=== PATIENT | female | born 1935 | race Caucasian/White ===

== ENCOUNTER 2018-02-18 13:48 | Emergency (ER) | payer OTHER, SELFPAY ==
[2018-02-18 13:58] VITALS: BP 192/90; PULSE 77; RESP 16; TEMP 36.7; O2SAT 96
--- NOTE | 2018-02-18 14:31 | DI.US_ITS ---
SYMPTOMS/DIAGNOSIS: LEFT CALF AND KNEE PAIN, CONCERN FOR DVT LEFT LOWER EXTREMITY ULTRASOUND: The deep veins of the left lower extremity show normal compression, augmentation and color flow. No evidence of a deep venous thrombus is present. The visualized portions of the common femoral vein are patent with normal blood flow. Incidental note is made of a 3.3 x 0.4 x 2.8 cm fluid collection along the posteromedial knee, likely reflecting a popliteal cyst. IMPRESSION: 1. No evidence of a left lower extremity deep venous thrombus. 2. Popliteal cyst.
--- NOTE | 2018-02-18 15:50 | DI.RAD_ITS ---
SYMPTOMS/DIAGNOSIS: LEFT KNEE PAIN LEFT KNEE: Three views. No acute fracture or dislocation is seen. Chondrocalcinosis is present. There is an enthesophyte at the superior aspect of the patella. The soft tissues are otherwise unremarkable. IMPRESSION: No acute abnormality.
[2018-02-18 17:20] VITALS: BP 192/90; PULSE 77; RESP 16; TEMP 36.7; O2SAT 96
--- NOTE | 2018-02-19 13:32 | W.ED.GENAD ---
Discharge Plan Disposition Patient Disposition: HOME Condition: Good Discharge Details Chief Complaint: Orthopedic Clinical Impression: Robertson cyst Primary Care Provider: Bryanna Kumar ED Provider: Brad Darden Home Meds and New Rx's Prescriptions: No Action lubiprostone [Amitiza] 8 mcg capsule 8 mcg PO BID Qty: 60 RF: 0 multivitamin [Daily Vitamin] 1 EACH tablet 1 ea PO DAILY RF: 0 aspirin 325 MG tablet 650 mg PO DAILY PRNRF: 0 acetaminophen [Tylenol Extra Strength] 500 MG tablet 1,000 mg PO PRN RF: 0 calcium carbonate [Tums Ultra] 400 MG tablet,chewable 400 mg PO PRN RF: 0 diphenhydramine-acetaminophen [Tylenol PM Extra Strength] 1 EACH tablet 1 ea PO PRN RF: 0 cholecalciferol (vitamin D3) 2,000 UNIT tablet 2,000 unit PO DAILY RF: 0 naproxen sodium 550 MG tablet 550 mg PO BID PRNQty: 60 RF: 1 psyllium husk (aspartame) [Metamucil Fiber Singles] 3.4 GM powder in packet 3.4 gm PO DAILY RF: 0 aspirin-sod bicarb-citric acid [Molly-[place] Extra Strength] 1 EACH tablet, effervescent 1 ea PO PRN RF: 0 estradiol [Estrace] 42.5 GM cream 0.25 sarah VG tiw PRNQty: 1 RF: 0 miconazole nitrate [Miconazole 7] 100 MG suppository 100 mg VG BID RF: 0 castor oil 1 cap PO DAILY RF: 0 polyethylene glycol 3350 [GlycoLax] 527 GM powder 17 gm PO BID PRNRF: 0 amitriptyline 25 mg tablet 25 mg PO BID PRN (Reason: Insomnia, fibromyalgia) Qty: 180 RF: 3 Discharge Instructions Instructions: Bakers Cyst (ED) Additional Instructions: Please take 1000 mg of Tylenol maximum, 800 mg of ibuprofen maximum, and use ice, and your pressure stocking on your leg. If you notice any worsening of your symptoms, or any new symptoms such as vomiting, diarrhea, fever, chills, shortness of breath, chest pain, numbness, weakness, or fainting , please return immediately to the emergency department for reevaluation. Please follow up with your primary care provider as soon as possible for reassessment and reevaluation. As always, it was a pleasure participating in your medical care today. Referrals: Bryanna Kumar MD [Primary Care Provider] - Discharge Data Discharge Date/Time-TO BE ENTERED AT DEPARTURE: 02/18/18 17:20 Medical Decision Making This is an 83-year-old female who presents today for evaluation of left lower extremity posterior knee pain. Patient states that for the last 3-4 days she has had mild pain in the posterior aspect of her knee. It is worsened with extension ambulation. It is improved with ibuprofen and compression devices. She denies any injury, fall, or trauma. She denies any associated numbness tingling or weakness. She denies any previous surgery on the knee. Physical exam demonstrates no significant joint laxity in the knee, no crepitus on movement. Neurovascularly intact. Mild tenderness on palpation to the posterior aspect. Differential included Robertson's cyst versus DVT. She has no history of blood clots or other red flags however based on physical exam this was of concern. Ultrasound demonstrated evidence of a large Robertson's cyst behind the knee, no osseous abnormalities on x-ray. At this time we did get the patient up and ambulate around. She did well, and showed no signs of pain or difficulty with ambulation. With a negative workup I feel the patient can be safely discharged home with close follow-up. We have encouraged continued ibuprofen, Tylenol, ice, elevation, and compression. We discussed the importance of close follow-up as well as red flags which to return the patient understands. I have extensively reviewed the treatment plan and discharge instructions with the patient. I have addressed all patient concerns at this time. The patient was made aware of what symptoms to monitor for that would warrant a return to the emergency department. Discussed the plan with the patient, they demonstrate verbal understanding and agreement with our assessment and plan at this time. The deep veins of the left lower extremity show normal compression, augmentation and color flow. No evidence of a deep venous thrombus is present. The visualized portions of the common femoral vein are patent with normal blood flow. Incidental note is made of a 3.3 x 0.4 x 2.8 cm fluid collection along the posteromedial knee, likely reflecting a popliteal cyst. IMPRESSION: 1. No evidence of a left lower extremity deep venous thrombus. 2. Popliteal cyst. LEFT KNEE: Three views. No acute fracture or dislocation is seen. Chondrocalcinosis is present. There is an enthesophyte at the superior aspect of the patella. The soft tissues are otherwise unremarkable. IMPRESSION: No acute abnormality. HPI General Date/Time Provider Initiated Documentation: 02/18/18 14:31. HPI Narrative: This is an 83-year-old female who presents today for evaluation of left lower extremity posterior knee pain. Patient states that for the last 3-4 days she has had mild pain in the posterior aspect of her knee. It is worsened with extension ambulation. It is improved with ibuprofen and compression devices. She denies any injury, fall, or trauma. She denies any associated numbness tingling or weakness. Patient denies any other associated symptoms at this time. The patient is able to walk without assistance, but it does cause her some mild discomfort. Past medical history is positive for hypertension, cardiac disease, high cholesterol. She denies any recent surgeries. Previous surgical history is positive for hysterectomy. She denies any IV or illicit drug use. She has no other complaints at this time. Related Data Home Medications Medication Instructions Recorded Confirmed acetaminophen [Tylenol Extra 1,000 mg PO PRN tab-cap 10/10/12 02/18/18 Strength] aspirin 650 mg PO DAILY PRN tab-cap 10/10/12 02/18/18 calcium carbonate [Tums Ultra] 400 mg PO PRN tab.chew 10/10/12 02/18/18 diphenhydramine-acetaminophen 1 ea PO PRN 10/10/12 02/18/18 [Tylenol Pm Ex-Strength Caplet] multivitamin [Daily Vitamin] 1 ea PO DAILY 10/10/12 02/18/18 cholecalciferol (vitamin D3) 2,000 unit PO DAILY 02/13/13 02/18/18 naproxen sodium 550 mg PO BID PRN #60 tab-cap 04/09/14 02/18/18 psyllium husk (aspartame) 3.4 gm PO DAILY 03/21/16 02/18/18 [Metamucil Fiber Singles Packet] aspirin-sod bicarb-citric acid 1 ea PO PRN 01/01/17 02/18/18 [Molly-[place] Es Tab Eff] estradiol [Estrace] 0.25 sarah VG tiw PRN #1 tube 07/10/17 02/18/18 [place] Oil 1 cap PO DAILY cap 08/07/17 02/05/18 miconazole nitrate [Miconazole 7] 100 mg VG BID supp.vag 08/07/17 02/18/18 polyethylene glycol 3350 [Glycolax] 17 gm PO BID PRN 09/04/17 02/18/18 amitriptyline 25 mg tablet 25 mg PO BID PRN #180 tab-cap 01/21/18 02/18/18 lubiprostone 8 mcg capsule 8 mcg PO BID #60 cap 02/05/18 02/18/18 Previous Rx's Medication Instructions Recorded amitriptyline 25 mg tablet 25 mg PO BID PRN #180 tab-cap 01/21/18 lubiprostone 8 mcg capsule 8 mcg PO BID #60 cap 02/05/18 Allergies Allergy/AdvReac Type Severity Reaction Status Date / Time Latex, Natural Rubber Allergy Severe rash Verified 02/18/18 14:03 General Stated Complaint: Orthopedic VICKIE: 3 Review of Systems Review of Systems All systems reviewed & are unremarkable except as noted in HPI and below PFSH Family History Mother Essential hypertension Father Heart disease Sister Essential hypertension Hyperlipidemia Social History household members: spouse housing: house lives independently: Yes number of children: 8 current occupational status: retired Smoking/Tobacco Use Status: Never alcohol intake: current alcohol intake frequency: holidays/special occasions only seatbelt use: always working smoke detector in home: Yes carbon monox detector in home: Yes Surgical History Hysterectomy lap uteroscaral ligament suspension,repair and sling (06/01/13) Exam Narrative Exam Narrative: 1.Const: Well-nourished, Well-developed, appearing stated age 2.Eyes: PERRL, no conjunctival injection, and symmetrical lids. 3.ENT: Atraumatic external nose and ears. Moist MM. Neck: Symmetric, trachea midline, No thyromegaly. 4.CVS: +S1/S2, No murmurs or gallops. Peripheral pulses 2+ and equal in all extremities. Brisk capillary refill in all extremities. 5.RESP: Unlabored respiratory effort. Clear to auscultation bilaterally. No wheezes rales or rhonchi 6.GI: Soft, Nontender/Nondistended, No hepatosplenomegaly. No guarding or rebound. 7.MSK: Patient has +5 out of 5 strength in the lower extremities in dorsiflexion and plantarflexion, knee flexion and extension, hip flexion and extension. There is +2 over 2 dorsalis pedis pulses bilaterally. There is normal sensation to the skin with light touch at the foot knee and hip. The knee is stable to varus, valgus, and anterior drawer stress. No deformity. Patellar grind test is negative. Patient is able to walk without significant difficulty. No edema or warmth to the joint except for minimal swelling in the posterior popliteal aspect of the knee. Mild tenderness to palpation here. No ttp to the patella, tibial plateau, or fibular head. 8.Skin: Warm, Dry. No rashes or lesions. 9.Neuro: head porter baggage II-XII grossly intact. Sensation grossly intact, no focal neurologic deficits. 10.Psych: (AAO) x3. Appropriate mood and affect Course Vital Signs Temperature 36.7 C 02/18/18 13:58 Pulse 77 02/18/18 13:58 Respiratory Rate 16 02/18/18 13:58 Blood Pressure 192/90 H 02/18/18 13:58 Pulse Oximetry 96 02/18/18 13:58 Temperature 36.7 C 02/18/18 17:20 Temperature Source Skin 02/18/18 13:58 Pulse 77 02/18/18 17:20 Respiratory Rate 16 02/18/18 17:20 Respiratory Effort Non-Labored 02/18/18 14:01 Blood Pressure 192/90 H 02/18/18 17:20 Pulse Oximetry 96 02/18/18 17:20 Pain Level 4 02/18/18 13:58
== END 2018-02-18 17:20 | disposition home or self-care (01) ==
PROVIDERS: Emergency Provider Student in an Organized Health Care Education/Training Program; PCP Internal Medicine
DX: M71.22 Synovial cyst of popliteal space [Baker], left knee (principal)
CPT/HCPCS: 73562; 99284; 93971; 99283

== ENCOUNTER 2018-09-01 14:36 | Outpatient (CLI) | payer OTHER, SELFPAY ==
--- NOTE | 2018-09-01 14:00 | DI.RAD_ITS ---
SYMPTOMS/DIAGNOSIS: BACK PAIN, M54.9-DORSALGIA LUMBAR SPINE: Comparison is made with March,. No compression fractures are seen. There has been interval worsening of degenerative disc changes when compared with the previous exam. There is now moderate narrowing of the L1-2 disc space. There are prominent endplate osteophytes projecting anteriorly. There is severe narrowing of the L2-3 disc space with endplate sclerosis and prominent osteophytes. There is mild narrowing of the L3-4 and L4-5 disc space. L5-S1 is well maintained. Facet degenerative changes are present throughout. There is a mild degenerative scoliosis. There is a large quantity of stool. IMPRESSION: Degenerative disc changes, greatest at L2-3, increasing when compared with the previous exam.
== END 2018-09-01 14:56 ==
PROVIDERS: PCP Internal Medicine; Visit Provider Nurse Practitioner
DX: M54.5 Low back pain (principal); M51.36 Other intervertebral disc degeneration, lumbar region; M47.816 Spondylosis without myelopathy or radiculopathy, lumbar region
CPT/HCPCS: 72110

== ENCOUNTER 2019-03-11 10:31 | Outpatient (CLI) | payer OTHER, SELFPAY ==
--- NOTE | 2019-03-11 10:18 | DI.RAD_ITS ---
EXAM: XR SHOULDER RT COMPLETE 2+V INDICATION: pain. COMPARISON: RIGHT SHOULDER COMPLETE from 07/04/2011 TECHNIQUE: 2D digital imaging was performed. FINDINGS: Mild to moderate degenerative changes are seen at the acromioclavicular joint and glenohumeral joint. The findings have progressed since the prior examination from 07/04/2011. The shoulder is normally aligned. The soft tissues are unremarkable. IMPRESSION: Mild to moderate degenerative changes of the right shoulder.
== END 2019-03-11 10:51 ==
PROVIDERS: PCP Internal Medicine; Referring Provider Internal Medicine; Visit Provider Orthopaedic Surgery
DX: M25.511 Pain in right shoulder (principal); M19.011 Primary osteoarthritis, right shoulder; S46.911A Strain of unspecified muscle, fascia and tendon at shoulder and upper arm level, right arm, initial encounter; X50.9XXA Other and unspecified overexertion or strenuous movements or postures, initial encounter
CPT/HCPCS: 99214; 73030

== ENCOUNTER 2019-07-30 02:21 | Outpatient (CLI) | payer OTHER, SELFPAY ==
[2019-07-30 09:47] LABS: Anion Gap 6.7 mmol/L (3-11); BUN 19 mg/dL (7-18); CO2 31.3 mmol/L (21.0-32.0); CREATININE 0.78 mg/dL (0.55-1.02); Calcium 8.9 mg/dL (8.5-10.1); Calculated LDL 141 mg/dL (<100); Chloride 106 mmol/L (98-107); Cholesterol 222 mg/dL (<200); Glucose 91 mg/dL (74-106); HDL Cholesterol 65 mg/dL (40-60); Sodium 144 mmol/L (136-145); Triglyceride 80 mg/dL (<150)
== END 2019-07-30 02:41 ==
PROVIDERS: PCP Internal Medicine; Visit Provider Internal Medicine
DX: I10 Essential (primary) hypertension (principal)
CPT/HCPCS: 36415; 80048; 80061

== ENCOUNTER 2019-11-09 01:35 | Outpatient (CLI) | payer OTHER, SELFPAY ==
--- NOTE | 2019-11-09 07:15 | DI.NM_ITS ---
APPROVED REPORT Exam: Pharmacologic Patient Location: Out-Patient Room/Bed: Stress Nurse: Kristy Holloway RN BMI: 27.45 Baseline Rhythm: Sinus Rhythm Indications: Dyspnea on exertion. Atypical chest pain. Medical History Medical History: HTN Cardiac Medications: Aspirin Allergies: Latex Cardiac Risk Factors: HTN, FHX of CAD Pretest Chest Pain Characteristics: Atypical angina Exercise History: Indeterminate Physical Disabilities: Back Lung Sounds: Clear to auscultation Heart Sounds: Regular Stress Test Details Test: Pharmacologic stress testing performed using 0.4 mg of regadenoson per 5 mL given IV over 10 s econds. Rest Isotope: Tc-99m Sestamibi. Dose: 11.0 Date: 11/09/2019 Injection Time: 0900 Stress Isotope: Tc-99m Sestamibi. Dose: 33.0 Date: 11/09/2019 Injection Time: 1025 HR Resting HR Supine: 66 bpm Max Heart Rate (APMHR): 138 bpm Target HR (85% APMHR): 117 bpm Max HR Achieved: 85 bpm % of APMHR: 61 Recovery HR: 84 bpm BP Resting BP Supine: 160/74 mmHg Max BP: 166/68 mmHg Recovery BP: 166/68 mmHg ECG Resting ECG: Sinus Rhythm Stress ECG: Sinus Rhythm Arrhythmia: None Recovery ECG: Sinus Rhythm Recovery Arrhythmia: None Stress ECG Conclusion 1. Oncological stress test. 2. EKG portion of this exam is nondiagnostic. Stress Test Summary STAGE HR BP Symptoms NOTES Supine 66 160/74 1 min post Lexiscan injection 85 154/70 3 min post Lexiscan injection 83 132/62 6 min post Lexiscan injection 84 166/68 MPI Conclusion Fraction with stress was 86%. There were no wall motion abnormalities. A significant amount of bowel uptake decreases the sensitivity of this exam This likely represents a normal SPECT stress test. Radiologist Interpretation Radiologist Interpretation by: Kodak Tiwari MD Interpretation Date/Time: 11/09/2019 16:08:30
[2019-11-09] MEDS: Regadenoson 0.4 MG/5 ML SYR IVP (10:51)
== END 2019-11-09 01:55 ==
PROVIDERS: PCP Internal Medicine; Visit Provider Internal Medicine
DX: R07.89 Other chest pain (principal); R06.09 Other forms of dyspnea; I10 Essential (primary) hypertension; Z82.49 Family history of ischemic heart disease and other diseases of the circulatory system
CPT/HCPCS: 78452; 93016; 93018; 93017; J2785

== ENCOUNTER 2020-01-07 08:51 | Outpatient (REF) | payer OTHER, SELFPAY ==
[2020-01-07 18:38] LABS: Abs Immature Grans 0.02 10^3/uL (0.0-0.06); Absolute Basophil Count 0.04 10^3/uL (0.0-0.2); Absolute Eosinophil Count 0.38 10^3/uL (0.0-0.7); Absolute Lymphocyte Count 2.11 10^3/uL (1.2-3.4); Absolute Monocyte Count 0.57 10^3/uL (0.1-0.8); Absolute Neutrophil Count 2.12 10^3/uL (1.2-6.7); Basophils % 0.8; Eosinophils % 7.3; HCT 45.1 % (36.0-46.0); HGB 14.6 g/dL (11.2-15.7); Immature Grans % 0.4; Lymphocytes % 40.3; MCHC 32.4 % (32.0-36.0); MCV 92.8 fL (80-95); MPV 11.2 fL (8.0-11.0); Monocytes % 10.9; Neutrophils % 40.3; Nucleated RBC 0 %; Platelet Count 270 10^3/uL (130-400); RBC 4.86 10^6/uL (3.93-5.22); WBC 5.24 10^3/uL (4.4-10.8)
[2020-01-11 10:18] LABS: Lyme Ab w Rflx to Lyme Confirm Negative (Negative)
[2020-01-11 20:58] LABS: Anaplasma phagocytophilum Negative (Negative); B. miyamotoi PCR Negative (Negative); Babesia divergens/MO-1 Negative (Negative); Babesia duncani Negative (Negative); Babesia microti Negative (Negative); Ehrlichia chaffeensis Negative (Negative); Ehrlichia ewingii/canis Negative (Negative); Ehrlichia muris eauclairensis Negative (Negative)
== END 2020-01-07 09:11 ==
LOC: LBO 08:51
PROVIDERS: PCP Internal Medicine; Referring Provider Student in an Organized Health Care Education/Training Program; Visit Provider Student in an Organized Health Care Education/Training Program
DX: K12.0 Recurrent oral aphthae (principal); R21 Rash and other nonspecific skin eruption; B99.9 Unspecified infectious disease; W57.XXXA Bitten or stung by nonvenomous insect and other nonvenomous arthropods, initial encounter; T14.8XXA Other injury of unspecified body region, initial encounter
CPT/HCPCS: 87798; 85025; 86618

== ENCOUNTER 2020-01-12 14:13 | Outpatient (CLI) | payer OTHER, SELFPAY ==
[2020-01-14 15:14] LABS: Patient Race White; SARS-CoV-2 RNA Undetected (Undetected); SARS-CoV-2 Specimen Source Nasopharynx
== END 2020-01-12 14:33 ==
PROVIDERS: PCP Internal Medicine; Visit Provider Family Medicine
DX: Z11.59 Encounter for screening for other viral diseases (principal)
CPT/HCPCS: U0003

== ENCOUNTER 2020-09-16 10:48 | Emergency (ER) | payer OTHER, SELFPAY ==
[2020-09-16 10:53] VITALS: BP 195/75; PULSE 81; RESP 18; TEMP 36.4; O2SAT 95
--- NOTE | 2020-09-16 11:15 | RT.EKG_ITS ---
APPROVED REPORT Exam: Resting ECG Reason for Exam: left shoulder pain Patient Location: E HR:68 bpm ECG Measurements Heart Rate 68 AXIS MT 215 P 55 QRSd 101 QRS -36 QT 413 T 107 QTc 439 Conclusion Sinus rhythm...normal P axis, V-rate 60- 99 Borderline prolonged MT interval...MT >212, V-rate 50- 90 LVH with secondary repolarization abnormality...multi-LVH criteria, abnrm ST-T
--- NOTE | 2020-09-16 11:23 | W.ED.GENAD ---
Discharge Plan Disposition Patient Disposition: HOME Condition: Good Discharge Details Clinical Impression: Acute pain of left shoulder Primary Care Provider: Bryanna Kumar ED Provider: Cleo Rendon Home Meds and New Rx's Prescriptions: New hydrocodone-acetaminophen 5-325 mg tablet 1 tab PO QHS PRNQty: 5 RF: 0 diclofenac sodium [Voltaren] 1 % gel 4 g topical QID Qty: 2 RF: 0 No Action montelukast [Singulair] 10 mg tablet 10 mg PO QPM Qty: 90 RF: 0 amitriptyline 25 mg tablet 25 mg PO BID PRN (Reason: Insomnia, fibromyalgia) Qty: 180 RF: 3 escitalopram oxalate 10 mg tablet 10 mg PO DAILY Qty: 90 RF: 1 albuterol sulfate 90 mcg/actuation HFA aerosol inhaler 1 puff inhalation QID PRN (Reason: shortness of breath or wheezing) Qty: 1 RF: 2 (DME) Aerovent Plus Spacer See Rx Instructions .ROUTE .MEDSUPPLY Qty: 1 RF: 0 alprazolam 0.25 mg tablet 0.25 mg PO PRN PRN (Reason: anxiety) Qty: 4 RF: 0 magic mouthwash 15 ml PO TID Qty: 500 RF: 1 aspirin 325 MG tablet 650 mg PO DAILY PRNRF: 0 acetaminophen [Tylenol Extra Strength] 500 MG tablet 1,000 mg PO PRN RF: 0 calcium carbonate [Tums Ultra] 400 MG tablet,chewable 400 mg PO PRN RF: 0 diphenhydramine-acetaminophen [Tylenol PM Extra Strength] 1 EACH tablet 1 ea PO PRN RF: 0 cholecalciferol (vitamin D3) 2,000 UNIT tablet 2,000 unit PO DAILY RF: 0 naproxen sodium 550 MG tablet 550 mg PO BID PRNQty: 60 RF: 1 Metamucil Fiber Singles 3.4 GM powder in packet 3.4 gm PO DAILY RF: 0 [place] Extra Strength 1 EACH tablet, effervescent 1 ea PO PRN RF: 0 (DME) Aerovent Plus Spacer MISCELLANEOUS RF: 0 Discharge Instructions Instructions: Shoulder Pain (ED) Additional Instructions: Take ibuprofen and Tylenol as needed for pain Follow-up with orthopedics and initially physical therapy, I have referred you Continue to range her shoulder so it does not become stiff Return earlier should you have new or worsening complaints including chest pain, shortness of breath, redness Stand Alone Forms: Physical Therapy Referral Medical Decision Making Patient is alert and oriented, she has reproducible tenderness, tenderness is exacerbated with movement X-ray shows evidence of tendinitis without fracture No evidence of septic arthritis, no erythema, no swelling, no fever I did consider angina or myocardial infarction, I did order an EKG this is a preliminary screening tool and this does not show evidence of acute pathology per my interpretation and my attendings review, safe for further documentation I did consider applying a sling, however I am concerned regarding frozen shoulders the patient was given Voltaren, Lidoderm, She was given a referral to physical therapy Return precautions discussed and patient expressed understanding Patient will need blood pressure recheck by primary care physician within 1 to 2 days Differential Diagnosis Differential Diagnosis: Angina, septic arthritis, shoulder strain, tendinitis Medical Records Medical records reviewed: Yes I reviewed the patient's medical records. Lab Data Lab results reviewed: Yes I reviewed the patient's lab results. HPI General Date/Time Provider Initiated Documentation: 09/16/20 10:53. Limitations to Documentation: no limitations. Information obtained by: patient. HPI Narrative: This 85-year-old female presents with report of left shoulder pain for the past 3 weeks. She denies known injury. She is right-hand dominant. The pain is constant but worsens with movement. She denies any exertional symptoms. She denies any chest pain or shortness of breath. She denies any numbness or tingling. She states the pain radiates up the back of her neck and into her upper back region. She denies any shortness of breath associated. She denies history of pain in this arm in the past. She does have a history of right shoulder pain. Predominantly flexion and abduction increase her pain. She describes the pain as muscular in nature. She states initially she thought it was from decreased usage, however she started using her left arm more and actually worsen the pain she reports. Related Data Home Medications Medication Instructions Recorded Confirmed acetaminophen [Tylenol Extra 1,000 mg PO PRN tab-cap 10/10/12 09/16/20 Strength] aspirin 650 mg PO DAILY PRN tab-cap 10/10/12 09/16/20 calcium carbonate [Tums Ultra] 400 mg PO PRN tab.chew 10/10/12 09/16/20 diphenhydramine-acetaminophen 1 ea PO PRN 10/10/12 09/16/20 [Tylenol Pm Ex-Strength Caplet] cholecalciferol (vitamin D3) 2,000 unit PO DAILY 02/13/13 09/16/20 naproxen sodium 550 mg PO BID PRN #60 tab-cap 04/09/14 09/16/20 psyllium husk (aspartame) 3.4 gm PO DAILY 03/21/16 09/16/20 [Metamucil Fiber Singles Packet] aspirin-sod bicarb-citric acid 1 ea PO PRN 01/01/17 09/16/20 [Molly-[place] Es Tab Eff] amitriptyline 25 mg tablet 25 mg PO BID PRN #180 tab-cap 05/28/19 09/16/20 montelukast 10 mg tablet 10 mg PO QPM #90 tab 12/01/19 09/16/20 magic mouthwash 15 ml PO TID #500 ml 01/07/20 09/16/20 albuterol sulfate 90 mcg/actuation 1 puff INHALATION QID PRN #1 inh 03/01/20 09/16/20 aerosol inhaler alprazolam 0.25 mg tablet 0.25 mg PO PRN PRN #4 tab 03/01/20 09/16/20 escitalopram oxalate 10 mg tablet 10 mg PO DAILY #90 tab 03/01/20 09/16/20 inhalational spacing device #1 ea 03/01/20 03/01/20 diclofenac sodium [Voltaren] 4 g TOPICAL QID #2 g 09/16/20 hydrocodone-acetaminophen 1 tab PO QHS PRN #5 tab 09/16/20 inhalational spacing device 09/16/20 09/16/20 [Aerovent Plus] Previous Rx's Medication Instructions Recorded amitriptyline 25 mg tablet 25 mg PO BID PRN #180 tab-cap 05/28/19 montelukast 10 mg tablet 10 mg PO QPM #90 tab 12/01/19 magic mouthwash 15 ml PO TID #500 ml 01/07/20 albuterol sulfate 90 mcg/actuation 1 puff INHALATION QID PRN #1 inh 03/01/20 aerosol inhaler alprazolam 0.25 mg tablet 0.25 mg PO PRN PRN #4 tab 03/01/20 escitalopram oxalate 10 mg tablet 10 mg PO DAILY #90 tab 03/01/20 inhalational spacing device #1 ea 03/01/20 diclofenac sodium [Voltaren] 4 g TOPICAL QID #2 g 09/16/20 hydrocodone-acetaminophen 1 tab PO QHS PRN #5 tab 09/16/20 Allergies Allergy/AdvReac Type Severity Reaction Status Date / Time Latex, Natural Rubber Allergy Severe rash Verified 09/16/20 10:58 General Stated Complaint: Orthopedic VICKIE: 4 Review of Systems Narrative: Review of systems negative x7 aside from where indicated in HPI [facility] Medical History (Updated 09/16/20 @ 12:16 by SHERITA Mckeon) Aphthous ulcer of mouth Basal cell adenocarcinoma Skin rash Tick bite Surgical History Hysterectomy lap uteroscaral ligament suspension,repair and sling (06/01/13) [facility], Dr. Jose Ruiz Family History Mother Essential hypertension Father Heart disease Sister Essential hypertension Hyperlipidemia Social History Smoking/Tobacco Use Status: Never Smoking risk assessment performed?: Yes Alcohol Intake: current Alcohol Intake frequency: a few times a week Alcohol type: wine Drug use: Never Substance use type: does not use Household members: spouse Housing: house Number of Children: 8 Communication Needs: Hard of Hearing and Corrective Lenses Do you need help understanding health information?: Never Current gender identity: female What is your relationship status?: Panel score (0-1 are the most socially isolated patients): 1 What type of physical activity do you participate in: none Seatbelt use: always Working smoke detector in home: Yes Carbon monox detector in home: Yes Do you feel safe at home: Yes Do you feel safe in your relationship?: Yes Exam Const General: cooperative Orientation: alert and oriented x3 Neck Neck: full ROM Other: Mild tenderness to palpation of her SCM, no carotid bruits, no meningismus Resp Effort & Inspection: normal respiratory effort Auscultation: clear to auscultation bilaterally Cardio Rate: regular rate Rhythm: regular rhythm Other: Distal pulses intact Skin General skin exam: no rashes or lesions noted Neuro General: patient alert and patient oriented x3 Other: Sensation intact distally Extrem Other: Tenderness to palpation to the left shoulder, trapezius, and SCM muscle, muscle spasm noted, decreased range of motion, specifically with flexion and abduction Course Vital Signs Vital signs: Vital Signs Temperature 36.4 C L 09/16/20 10:53 Pulse 81 09/16/20 10:53 Respiratory Rate 18 09/16/20 10:53 Blood Pressure 195/75 H 09/16/20 10:53 Pulse Oximetry 95 09/16/20 10:53 Temperature 36.4 C L 09/16/20 10:53 Temperature Source Skin 09/16/20 10:53 Pulse 81 09/16/20 10:53 Respiratory Rate 18 09/16/20 10:53 Respiratory Effort Non-Labored 09/16/20 10:59 Blood Pressure 195/75 H 09/16/20 10:53 Blood Pressure Position Sitting 09/16/20 10:53 Pulse Oximetry 95 09/16/20 10:53 Oxygen Delivery Method Room Air 09/16/20 10:53 Oxygen Flow Rate 0 09/16/20 10:53 Pain Level 10 09/16/20 10:59
--- NOTE | 2020-09-16 11:56 | DI.RAD_ITS ---
Exam(s) XR SHOULDER LT COMPLETE 2+V EXAM: XR SHOULDER LT COMPLETE 2+V CLINICAL HISTORY: pain with flexion and abduction. TECHNIQUE: 2D digital imaging was performed. COMPARISON: No exams were available for comparison FINDINGS: No acute fracture or dislocation. Moderate degenerative changes are seen at the acromioclavicular mallika int. Mild degenerative changes are seen at the glenohumeral joint. Chondrocalcinosis is seen around the shoulder. IMPRESSION: Degenerative changes around the left shoulder. No acute fracture or dislocation. DATA REPOSITORY: RADIATION DOSE DELIVERED:
== END 2020-09-16 12:35 | disposition home or self-care (01) ==
PROVIDERS: Emergency Provider Physician Assistant; PCP Internal Medicine
DX: M25.512 Pain in left shoulder (principal)
CPT/HCPCS: 93005; 99284; 73030; 93010; 99283

== ENCOUNTER 2020-09-23 12:36 | Outpatient (CLI) | payer OTHER, SELFPAY ==
--- NOTE | 2020-09-23 12:15 | DI.RAD_ITS ---
Exam(s) XR CERVICAL SPINE COMP 4-5V EXAM: XR CERVICAL SPINE COMP 4-5V CLINICAL HISTORY: r/o acute process; fragility fracture vs. chrc DJD,NECK PAIN,M54.2. TECHNIQUE: 2D digital imaging was performed. COMPARISON: CR CERV SP.WITH OBL OR FLEX/EXT from 07/14/2008 FINDINGS: BONES: No fracture or destructive lesion. Vertebral bodies are unremarkable. Facet joint degenerativ e changes are seen greatest at C3-4 and C4-5. Bilateral neural foraminal narrowing is seen at C6-7. Left neural foraminal narrowing is noted at C3-4. DISKS: Mild narrowing of the C4-5 and C5-6 disc spaces. Severe narrowing of the C6-7 disc space.. E ndplate osteophytes are noted at these levels. ALIGNMENT: Cervical spinal alignment is within normal limits. The odontoid and atlantoaxial articulat ions are normal. SOFT TISSUE: Normal. The lung apices are clear. IMPRESSION: Degenerative disc changes and facet degenerative changes causing bilateral neural foraminal narrowing at C6-7. DATA REPOSITORY: RADIATION DOSE DELIVERED:
== END 2020-09-23 12:56 ==
PROVIDERS: PCP Internal Medicine; Visit Provider Nurse Practitioner Adult Health
DX: M54.2 Cervicalgia (principal); M50.223 Other cervical disc displacement at C6-C7 level; M47.892 Other spondylosis, cervical region
CPT/HCPCS: 72050

== ENCOUNTER 2020-11-01 02:11 | Outpatient (CLI) | payer OTHER, SELFPAY ==
--- NOTE | 2020-11-01 09:15 | DI.DEXA_ITS ---
Exam(s) EXAM: CLINICAL HISTORY: . TECHNIQUE: 2D digital imaging was performed. COMPARISON: CR XR lumbar spine complete from 09/01/2018 Prior DEXA scan August 2007 FINDINGS: Total lumbar spine T-score= 1.6. Prior 2007 reading was -0.5. Total left hip T-score= -1.8 Prior 2007 reading was -1.2 Left femoral neck T-score is -2.0 Total formed T-score= -1.5. IMPRESSION: Bone mineral density is in the osteopenia range. Fracture risk is moderate. DATA REPOSITORY: RADIATION DOSE DELIVERED:
== END 2020-11-01 02:31 ==
PROVIDERS: PCP Internal Medicine; Visit Provider Nurse Practitioner Adult Health
DX: Z13.820 Encounter for screening for osteoporosis (principal); M85.89 Other specified disorders of bone density and structure, multiple sites; Z78.0 Asymptomatic menopausal state
CPT/HCPCS: 77080

== ENCOUNTER 2021-04-17 12:06 | Emergency (ER) | payer MEDICARE, SELFPAY ==
[2021-04-17 12:44] VITALS: BP 164/78; PULSE 80; RESP 16; TEMP 36.7; O2SAT 96
--- NOTE | 2021-04-17 12:45 | RT.EKG_ITS ---
APPROVED REPORT Exam: Resting ECG Reason for Exam: dizziness Patient Location: E HR:77 bpm ECG Measurements Heart Rate 77 AXIS OR 206 P 61 QRSd 122 QRS -36 QT 406 T 117 QTc 459 Conclusion Sinus rhythm...normal P axis, V-rate 60- 99 Left bundle branch block...QRSd>120, broad/notched R. Sinus. LBBB, new compared to previous. No STEMI. I have reviewed and interpreted ECG and agree with software generated interpretation.
--- NOTE | 2021-04-17 12:50 | ED.GENADUL_ITS ---
Discharge Plan Disposition Patient Disposition: HOME Condition: Stable Discharge Details Clinical Impression: Rectocele, Dizziness Primary Care Provider: Bryanna Kumar ED Provider: Xiomara Soto Home Meds and New Rx's Prescriptions: New meclizine 12.5 mg tablet 12.5 mg PO TID PRN (Reason: dizziness) Qty: 14 RF: 0 Continued omega 3,6,9 combination no.7 92 mg (43 mg-22 [id number]) tablet,chewable PO DAILY RF: 0 prevagen PO DAILY RF: 0 famotidine 20 mg tablet 20 mg PO BID Qty: 60 RF: 5 fluoxetine 10 mg capsule 10 mg PO QAM Qty: 90 RF: 3 albuterol sulfate 90 mcg/actuation HFA aerosol inhaler 1 puff inhalation QID PRN (Reason: shortness of breath or wheezing) Qty: 1 RF: 2 (DME) [employer] Plus Spacer See Rx Instructions .ROUTE .MEDSUPPLY Qty: 1 RF: 0 amitriptyline 25 mg tablet 25 mg PO BID PRN (Reason: Insomnia, fibromyalgia) Qty: 180 RF: 3 amlodipine 5 mg tablet 5 mg PO DAILY Qty: 90 RF: 1 aspirin 325 MG tablet 650 mg PO DAILY PRNRF: 0 acetaminophen [Tylenol Extra Strength] 500 MG tablet 1,000 mg PO PRN RF: 0 calcium carbonate [Tums Ultra] 400 MG tablet,chewable 400 mg PO PRN RF: 0 diphenhydramine-acetaminophen [Tylenol PM Extra Strength] 1 EACH tablet 1 ea PO PRN RF: 0 naproxen sodium 550 MG tablet 550 mg PO BID PRNQty: 60 RF: 1 Discharge Instructions Instructions: Rectocele (ED), Dizziness (ED) Additional Instructions: Take the dizziness medication meclizine up to 3 times daily as needed for dizziness. The CT does not show anything acute. Please follow-up with general surgery regarding the rectocele. Please take Metamucil or a stool softener to prevent straining. Follow up with primary care provider in 3-5 days. Return to ED sooner if any worsening rectal pain, bleeding from the rectum, or concerns. Increase oral fluids. Referrals: Bryanna Kumar MD [Primary Care Provider] - 5 days Nai Lama DO [OSTEOPATHIC DOCTOR] - 1 week Discharge Data Discharge Date/Time-TO BE ENTERED AT DEPARTURE: 04/17/21 17:35 Medical Decision Making <SHERITA Coe - Last Filed: 04/19/21 21:15> Patient is a pleasant 86 year old female presenting with a few different complaints. Primary concern at this time is for rectal prolapse. She states that starting last night she has had change in bowel habits. States that the shape of her stool has changed and is now having balls or oblong stool. No blood in the stool. No abdominal pain. She states that when she wiped on the bottom she can feel a bulge. Is questioning if this could be recurrence of rectocele or hemorrhoids. Patient does have history of both. Denies any change in urinary habits. Has not noted vaginal prolapse. Patient also presenting for dizziness. Patient does have a history of vertig o. She states that for the past 2 days with any type of quick movement she feels like the room is spinning. She denies any headache. Denies any acute visual changes. She does state that she wears glasses and her eyesight has been worsening over the past several years. She denies any fevers or chills. Has not fallen. No focal weakness. States this is similar to when she had vertigo in the past but that it feels worse. Past medical history is pertinent for anxiety, chronic pain, hypertension, rectocele, IBS with constipation, GERD, fibromyalgia, cystocele, chronic constipation. On exam, patient appears nontoxic. Vital signs are stable. Normal neurological exam. Patient is not actively vertiginous, did not induce any nystagmus. Patient does not appear acutely ill, no meningismus. Lungs are clear, normal cardiac exam. Abdomen is benign and nontender. Normal rectal exam, do not appreciate any prolapse or hemorrhoids at this time. I did advise the patient that is possible that she does have a rectocele that is only present when she is actively straining and is not apparent currently. The patient's age and sudden onset of vertigo, I do feel that CT of her head and neck would be appropriate. We will also obtain baseline labs. I do not see need for imaging of her abdomen at this time. In regard to the rectal prolapse, do not see any evidence of rectal prolapse currently and plan to refer to general surgery for further evaluate Labs reviewed, CBC normal, CMP normal, troponin normal. Patient going for CTA head and neck. At the end of my shift, care transitioned to Xiomara Soto NP with imaging pending. Plan to treat with meclizine for likely vertigo. Will refer to general surgery for further evaluation of rectocele. Just prior to my leaving, patient had BM. After, she was able to strain and demonstrate that bowel can be seen at rectal opening. None protruded throug the anus. <Xiomara Soto - Last Filed: 04/17/21 18:52> Care assumed from provider (SHERITA Vick) Please see their initial HPI, PE, and documentation. Discussed patient details and case and pending workup and disposition. Patient is hemodynamically stable, and alert and oriented. At the time of signout we are awaiting a CTA head and neck due to patient dizziness. FINDINGS: ANTERIOR CIRCULATION: Right internal carotid artery: Calcified plaque of the cavernous and intradural right internal carotid artery, with mild vessel stenosis. No evidence of occlusion or aneurysm formation. Right middle cerebral artery: Unremarkable. No occlusion or significant stenosis. No aneurysm. Right anterior cerebral artery: Unremarkable. No occlusion or significant stenosis. No aneurysm. Left internal carotid artery: Calcified plaque of the cavernous and intradural left internal carotid artery, with mild vessel stenosis. No evidence of occlusion or aneurysm formation. Left middle cerebral artery: Unremarkable. No occlusion or significant stenosis. No aneurysm. Left anterior cerebral artery: Unremarkable. No occlusion or significant stenosis. No aneurysm. POSTERIOR CIRCULATION: Right vertebral artery: Unremarkable. No occlusion or significant stenosis. No aneurysm. Left vertebral artery: The left vertebral artery is hypoplastic, functionally terminating in a left PICA without significant contribution to the vertebrobasilar junction. Beub-wi-jibjicvt stenosis of the proximal left V4 segment. Basilar artery: Unremarkable. No occlusion or significant stenosis. No aneurysm. Right posterior cerebral artery: Unremarkable. No occlusion or significant stenosis. No aneurysm. Left posterior cerebral artery: Unremarkable. No occlusion or significant stenosis. No aneurysm. Brain: Generalized cerebral and cerebellar volume loss is within normal limits for the patient's age. Subcortical and deep white matter hypodensities are consistent with chronic small vessel ischemic disease. No CT evidence of acute transcortical infarction. No acute intracranial hemorrhage, edema, midline shift, or mass effect. Cerebral ventricles: No ventriculomegaly. Orbital cavity: Senile calcification of the left globe. Bones/joints: Unremarkable. No acute fracture. Soft tissues: Unremarkable. IMPRESSION: 1. No anterior large vessel occlusion is appreciated. 2. Mild chronic small vessel ischemic changes of the cerebral hemispheres. No CT evidence of acute infarction. COMPARISON: CR XR CERVICAL SPINE COMP 4-5V 09/23/2020 12:32 PM FINDINGS: Right common carotid artery: No stenosis. No dissection or occlusion. Right internal carotid artery: Minimal calcified plaque at the right internal carotid artery origin. No significant stenosis (0% by NASCET criteria). Moderate tortuosity of the cervical right internal carotid artery. Right external carotid artery: No occlusion or stenosis of the origin. Left common carotid artery: Common origin of the right brachiocephalic and left common carotid arteries. Left internal carotid artery: Mild mixed calcified and atheromatous plaque at the left internal carotid artery origin with mild ulceration. No significant stenosis (0% by NASCET criteria). Lble-fu-wovcxjij tortuosity of the cervical left internal carotid artery. Left external carotid artery: No occlusion or stenosis of the origin. Right vertebral artery: No stenosis. No dissection or occlusion. Left vertebral artery: No stenosis. No dissection or occlusion. Aorta: Mild atherosclerosis of the visualized aortic arch. Thyroid: Dominant nodule of the right thyroid measures up to 1.8 cm. Soft tissues: Normal. No significant soft tissue swelling. Bones/joints: Degenerative changes of the cervical spine, with grade 1 anterolisthesis of C3 and C4. No gross high-grade spinal canal stenosis is appreciated. IMPRESSION: 1. Mild atherosclerosis of the neck, without significant vessel stenosis. 2. Mild to moderate tortuosity of the cervical internal carotid arteries, a nonspecific finding that may be seen with chronic hypertension. Correlate with the patient's history. 3. Dominant nodule of the right thyroid measures 1.8 cm. By ACR guidance, further evaluation with nonemergent ultrasound is recommended. Patient discharged with a prescription for meclizine. Discussed follow-up with PCP. This text was generated using [employer] system, please disregard any oddities of phrase or misspellings. HPI <SHERITA Coe - Last Filed: 04/19/21 21:15> General Mode of arrival: ambulatory . Date/Time Provider Initiated Documentation: 04/17/21 12:50 . Limitations to Documentation: no limitations . Information obtained by: patient, RN notes reviewed and old records reviewed . History of Present Illness 86 year old F presents to the emergency department with the chief complaint of dizziness, rectal prolapse, change in bowels, described as moderate and similar to prior episodes (has hx of rectal prolapse, vaginal prolapse and vertigo), Quality is described as other (denies pain), and is localized to the buttocks (feels bulge in rectum). Patient started experiencing this day(s) and it has been intermittent. Immobilization improves symptom(s), Movement worsens symptoms (vertigo is worse iwth movement) . Patient notes denies chest pain, cough, diaphoresis, fever/chills, headaches, loss of appetite, nausea/vomiting, rash, shortness of breath and syncope. Related Data Home Medications Medication Instructions Recorded Confirmed acetaminophen [Tylenol Extra 1,000 mg PO PRN tab-cap 10/10/12 04/19/21 Strength] aspirin 650 mg PO DAILY PRN tab-cap 10/10/12 04/19/21 calcium carbonate [Tums Ultra] 400 mg PO PRN tab.chew 10/10/12 04/19/21 diphenhydramine-acetaminophen 1 ea PO PRN 10/10/12 04/19/21 [Tylenol PM Extra Strength] naproxen sodium 550 mg PO BID PRN #60 tab-cap 04/09/14 04/19/21 albuterol sulfate 90 mcg/actuation 1 puff INHALATION QID PRN #1 inh 03/01/20 04/19/21 aerosol inhaler inhalational spacing device #1 ea 03/01/20 04/19/21 amitriptyline 25 mg tablet 25 mg PO BID PRN #180 tab-cap 09/23/20 04/19/21 omega 3,6,9 combination no.7 92 mg mg PO DAILY tab 02/01/21 04/19/21 (43 mg-22 [id number]) chew tablet prevagen PO DAILY 02/01/21 04/19/21 amlodipine 5 mg tablet 5 mg PO DAILY #90 tab 03/08/21 04/19/21 famotidine 20 mg tablet 20 mg PO BID #60 tab 04/05/21 04/19/21 fluoxetine 10 mg capsule 10 mg PO QAM #90 tab-cap 04/05/21 04/19/21 meclizine 12.5 mg PO TID PRN #14 tab 04/17/21 04/19/21 Previous Rx's Medication Instructions Recorded albuterol sulfate 90 mcg/actuation 1 puff INHALATION QID PRN #1 inh 03/01/20 aerosol inhaler inhalational spacing device #1 ea 03/01/20 amitriptyline 25 mg tablet 25 mg PO BID PRN #180 tab-cap 09/23/20 amlodipine 5 mg tablet 5 mg PO DAILY #90 tab 03/08/21 famotidine 20 mg tablet 20 mg PO BID #60 tab 04/05/21 fluoxetine 10 mg capsule 10 mg PO QAM #90 tab-cap 04/05/21 meclizine 12.5 mg PO TID PRN #14 tab 04/17/21 Allergies Allergy/AdvReac Type Severity Reaction Status Date / Time Latex, Natural Rubber Allergy Severe rash Verified 04/19/21 09:49 General Stated Complaint: Abd Prob VICKIE: 3 Review of Systems <SHERITA Coe - Last Filed: 04/19/21 21:15> Constitutional Constitutional: Reports as per HPI, Denies chills, Denies fever(s), Denies frequent falls, Denies headache(s) and Denies weakness Eyes Eyes: Reports as per HPI, Denies blurry vision and Denies change in vision ENT Ears, Nose, Mouth, and Throat: Reports vertigo, Denies headache(s) and Denies neck pain Cardiovascular Cardiovascular: Reports as per HPI, Denies chest pain, Denies lightheadedness, Denies radiating jaw, neck or arm pain, Denies dyspnea and Denies dyspnea on exertion Respiratory Respiratory: Reports as per HPI, Denies chest congestion, Denies cough, Denies dyspnea, Denies dyspnea on exertion, Denies stridor and Denies wheezing Gastrointestinal Gastrointestinal: Reports as per HPI, Denies abdominal pain, Denies bloating, Denies hematochezia, Reports change in bowel habits (feels that stool is more round than typical), Denies tenesmus, Denies nausea, Denies vomiting and Reports other Genitourinary Genitourinary: Reports system reviewed and no additional complaints, except as documented (she denies change in urinary habits) Musculoskeletal Musculoskeletal: Reports as per HPI, Denies back pain, Denies neck pain and Denies numbness Integumentary/Breasts Skin/Breast: Reports as per HPI and Denies rash Neurologic Neurologic: Reports as per HPI, Denies abnormal speech, Reports vertigo, Denies frequent falls, Denies headache(s), Denies localized weakness, Denies numbness, Denies sensory deficit and Denies weakness Allergic/Immunologic Allergic/Immunologic: Denies wheezing PFSH <SHERITA Coe - Last Filed: 04/19/21 21:15> Active Problem List (Updated 04/17/21 @ 17:07 by Xiomara Soto) Rectocele (Acute) Dizziness (Acute) Osteopenia determined by x-ray (Acute) Cervical stenosis of spinal canal (Acute) Tick bite (Acute) Anxiety (Chronic) Other chronic pain (Acute 03/16/15) Hypertension (Chronic) Rectocele (Acute 02/04/13) Osteoarthritis (Acute) Irritable bowel syndrome with constipation (Acute 03/21/16) Headache (Acute 09/11/11) Gastroesophageal reflux disease with esophagitis (Acute 03/21/16) Fibromyalgia (Acute 09/11/11) Cystocele (Acute 02/04/13) Chronic constipation (Acute 03/21/16) Atypical chest pain (Acute 09/11/11) Medical History (Updated 04/17/21 @ 17:07 by Xiomara Soto) Acute pain of left shoulder Aphthous ulcer of mouth Basal cell adenocarcinoma BPV (benign positional vertigo) Right shoulder strain Skin rash Surgical History Hysterectomy lap uteroscaral ligament suspension,repair and sling (06/01/13) [facility], Dr. Jose Ruiz Family History Mother Essential hypertension Father Heart disease Sister Essential hypertension Hyperlipidemia Social History Smoking/Tobacco Use Status: Never Smoking risk assessment performed?: Yes Alcohol Intake: current Alcohol Intake frequency: a few times a week Alcohol type: wine and hard liquor Drug use: Never Substance use type: does not use Household members: spouse Housing: house Number of Children: 8 Communication Needs: Hard of Hearing and Corrective Lenses Do you need help understanding health information?: Never Current gender identity: female What is your relationship status?: Panel score (0-1 are the most socially isolated patients): 1 What type of physical activity do you participate in: none Seatbelt use: always Working smoke detector in home: Yes Carbon monox detector in home: Yes Do you feel safe at home: Yes Do you feel safe in your relationship?: Yes Exam <SHERITA Coe - Last Filed: 04/19/21 21:15> Const General: cooperative, healthy appearing, uncomfortable, no acute distress, well developed and well groomed Nutritional Appearance: average body habitus and well nourished Orientation: alert, awake and oriented x3 HENMT Head: normal to inspection, no palpable skull fracture, normocephalic and atraumatic Ears: hearing grossly normal bilaterally, external ears normal and TM's normal bilaterally General nose exam: external nose normal Mouth: oral mucosae normal and moist mucous membranes Throat: posterior oropharynx normal Eyes General: appearance normal, both eyes and all related structures Alignment and Position: alignment normal Periorbital: periorbital findings normal Eyelids: eyelids normal Sclera: sclerae normal Cornea: corneas normal Pupils: PERRL EOM: EOM intact bilaterally and No nystagmus Neck Neck: normal visual inspection, full ROM, no lymphadenopathy and no meningeal signs Resp Effort & Inspection: normal respiratory effort, able to speak in complete sentences and no respiratory distress Auscultation: clear to auscultation bilaterally, no rales, no rhonchi and no wheezes Cardio Rate: regular rate Rhythm: regular rhythm Heart Sounds: S1 normal and S2 normal GI Inspection: normal to inspection and non-distended Palpation: soft, no hepatosplenomegaly, not firm, no guarding, not rigid and nontender Percussion: normal to percussion Auscultation: normal bowel sounds Rectal Exam - female: visual inspection normal, normal sphincter tone, No heme positive stool, No symmetric and No tenderness Skin General skin exam: no rashes or lesions noted Neuro General: patient alert, patient awake and patient oriented x3 Cranial Nerves: CN's II-XI intact bilaterally and no nystagmus Cognition: normal cognition Speech: speech normal Gait: normal gait Motor: muscle tone normal throughout, strength 5/5 throughout, no pronator drift, no movement abnormalities noted and no fasciculations Sensory Exam: no sensory deficits noted Coordination: [id number] test normal and [id number] test normal Extrem General: normal to inspection, capillary refill normal, no pedal edema and no calf tenderness Psych Appearance: grossly normal and well kempt Mental Status: mental status grossly normal Speech and Movement: speech and movement normal Course <SHERITA Coe - Last Filed: 04/19/21 21:15> Vital Signs Vital signs: Vital Signs Temperature 36.7 C 04/17/21 12:44 Pulse 80 04/17/21 12:44 Respiratory Rate 16 04/17/21 12:44 Blood Pressure 164/78 H 04/17/21 12:44 Pulse Oximetry 96 04/17/21 12:44 Temperature 36.7 C 04/17/21 12:44 Temperature Source Skin 04/17/21 12:44 Pulse 80 04/17/21 12:44 Respiratory Rate 16 04/17/21 12:44 Respiratory Effort Non-Labored 04/17/21 12:44 Blood Pressure 164/78 H 04/17/21 12:44 Blood Pressure Position Sitting 04/17/21 12:44 Pulse Oximetry 96 04/17/21 12:44 Oxygen Delivery Method Room Air 04/17/21 12:44 Oxygen Flow Rate 0 04/17/21 12:44 Pain Level 1 04/17/21 12:44 Sign Out <SHERITA Coe - Last Filed: 04/19/21 21:15> Sign Out Data: Sign Out Comment: Care transition to Jazmine Soto NP with imaging pending. Patient here with chief complaint of rectocele. No evidence of prolapse on physical exam today. Plan to refer to general surgery. No abdominal pain. Do not see emergent pathology in this regard. She is also having vertigo. Room spinning with quick movements. Ordered meclizine. Given age, also ordered CTA head and neck. She has had distant history of vertigo. Vertiginous x 3 days intermittently Last updated by Luz Peña PA at 04/17/21 16:17
[2021-04-17 14:14] LABS: Abs Immature Grans 0.02 10^3/uL (0.0-0.06); Absolute Basophil Count 0.03 10^3/uL (0.0-0.2); Absolute Eosinophil Count 0.52 10^3/uL (0.0-0.7); Absolute Lymphocyte Count 1.87 10^3/uL (1.2-3.4); Absolute Monocyte Count 0.65 10^3/uL (0.1-0.8); Absolute Neutrophil Count 3.85 10^3/uL (1.2-6.7); Basophils % 0.4; Eosinophils % 7.5; HCT 43.6 % (36.0-46.0); HGB 14.2 g/dL (11.2-15.7); Immature Grans % 0.3; Lymphocytes % 26.9; MCHC 32.6 % (32.0-36.0); MPV 10.2 fL (8.0-11.0); Monocytes % 9.4; Neutrophils % 55.5; Nucleated RBC 0 %; Platelet Count 260 10^3/uL (130-400); RBC 4.74 10^6/uL (3.93-5.22); RDW 12.2 % (11.7-14.6); RDW-SD 41.5 fL; WBC 6.94 10^3/uL (4.4-10.8)
--- NOTE | 2021-04-17 14:15 | DI.CT_ITS ---
Exam(s) CT BRAIN NECK CTA EXAM: CT BRAIN NECK CTA CLINICAL HISTORY: vertigo. TECHNIQUE: Imaging Protocol: Axial CT angiography was performed with multi-slice acquisition and mu lti-planar and/or 3D reconstructions. CONTRAST MATERIAL: Intravenous: Omnipaque 350 Contrast volume:85 mL COMPARISON: No exams were available for comparison FINDINGS: CT Head W/O and W: Ventricles and Extra axial spaces: Normal in size and morphology for the patient's age. Hemorrhage: None. Cerebral parenchyma: No evidence of an acute territorial infarct. There are areas of decreased atten uation in the white matter most consistent with chronic microvascular ischemic disease. Midline shift: None. Brainstem/Cerebellum: Normal. Calvarium: Normal. Visualized Paranasal sinuses/Mastoids: Clear. Soft Tissues: Unremarkable. Enhancement: Unremarkable. CTA Neck W: Common Carotid: Right: No dissection, occlusion or significant stenosis. Mild calcification in the carotid bulb. Left: No dissection, occlusion or significant stenosis. Mild calcification in the carotid bulb/inter nal carotid artery origin.. External Carotid: Right: No occlusion or significant stenosis. Left: No occlusion or significant stenosis. Internal Carotid: Right: No dissection, occlusion or significant stenosis. Left: No dissection, occlusion or significant stenosis. Vertebral Artery: Right: No dissection, occlusion or significant stenosis. There is a dominant right vertebral artery. Left: No dissection, occlusion or significant stenosis. The left vertebral artery terminates at the left PICA. There is moderate stenosis of the proximal left V4 segment. Lung Apices: No focal infiltrates. Bones: Within normal limits for the patient's age. Soft Tissues: Normal. Thyroid gland: 1.8 cm right thyroid nodule. No associated findings in the neck. Nonemergent thyroid ultrasound is recommended. CTA Brain W: Internal Carotid Arteries: Atherosclerosis bilaterally. Anterior Cerebral Arteries: Right: No aneurysm, occlusion or significant stenosis. Left: No aneurysm, occlusion or significant stenosis. Middle Cerebral Arteries: Right: No aneurysm, occlusion or significant stenosis. Left: No aneurysm, occlusion or significant stenosis. Posterior Cerebral Arteries: Right: No aneurysm, occlusion or significant stenosis. Left: No aneurysm, occlusion or significant stenosis. Vertebral Arteries: Right: No aneurysm, occlusion or significant stenosis. Left: No aneurysm, occlusion or significant stenosis. Basilar Artery: No aneurysm, occlusion or significant stenosis. IMPRESSION: 1. No large vessel occlusion or significant stenosis on the CT angiography of the head. 2. No acute intracranial process. 3. 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 Moderate stenosis of the proximal left V4 segment. 4. No large vessel occlusion in the CT angiography of the neck. Incidental Findings RADIATION DOSE DELIVERED: 1,713.04mGy.cm Total DLP DATA REPOSITORY: All CT scans at this facility are submitted to the National Radiology Data Registry (NRDR) Dose Index Registry (DIR) with the [employer] (ACR). RADIATION OPTIMIZATION: All CT scans at this facility use at least one of these dose optimization te chniques: automated exposure control; mA and/or kV adjustment per patient size (includes targeted exa ms where dose is matched to clinical indication); or iterative reconstruction.
[2021-04-17 14:30] LABS: ALT 32 U/L (14-59); AST 18 U/L (15-37); Albumin 4.1 g/dL (3.4-5.0); Alkaline Phosphatase 89 U/L (46-116); Anion Gap 9.3 mmol/L (3-11); BUN 15 mg/dL (7-18); Bilirubin, Total 0.5 mg/dL (0.2-1.0); CO2 26.7 mmol/L (21.0-32.0); CREATININE 0.6 mg/dL (0.55-1.02); Chloride 104 mmol/L (98-107); Glucose 101 mg/dL (74-106); Magnesium 2.1 mg/dL (1.8-2.4); Potassium 3.9 mmol/L (3.5-5.1); Sodium 140 mmol/L (136-145); Total Protein 7.5 g/dL (6.4-8.2); Troponin I < 0.05 ng/mL (<0.06)
[2021-04-17] MEDS: Normal Saline 1,000 ML 500 ML IV (14:38)
[2021-04-17] MEDS: Meclizine 12.5 MG TAB PO (15:46)
[2021-04-17 15:53] LABS: Bilirubin Negative (Negative); Blood Negative (Negative); Clarity Sl Cloudy (Clear); Glucose Negative (Negative); Ketones Negative (Negative); Leukocyte Esterase Negative (Negative); Nitrite Negative (Negative)
--- NOTE | 2021-04-17 16:00 | NUR.NOTE ---
Addendum entered by Radha Herbert 04/18/21 08:07: [facility] called stating that they do not do rectocele. She needs to be referred to [facility] [place]. Referral given to Care Management to do this. Original Note: Nursing Note: Referral faxed to [facility] for follow up of retocele withing the next couple of weeks. Radha Herbert
[2021-04-17] MEDS: Omnipaque 350 MG/ML 100 ML BTL IJ (16:27)
[2021-04-17] MEDS: Normal Saline Flush 10 ML SYR IVP (16:28)
--- NOTE | 2021-04-17 16:58 | DI.VRAD_ITS ---
PROCEDURE INFORMATION: Exam: CT Angiography Head With Contrast, Arteriography Exam date and time: 04/17/2021 2:29 PM Age: 86 years old Clinical indication: Dizziness and giddiness TECHNIQUE: Imaging protocol: Computed tomography angiography of the head with contrast. Exam focused on the arteries. 3D rendering (Not supervised by radiologist): MIP and/or 3D reconstructed images were created by the technologist. Contrast material: OMNIPAQUE 350; Contrast volume: 85 ml; Contrast route: INTRAVENOUS (IV); COMPARISON: No relevant prior studies available. FINDINGS: ANTERIOR CIRCULATION: Right internal carotid artery: Calcified plaque of the cavernous and intradural right internal carotid artery, with mild vessel stenosis. No evidence of occlusion or aneurysm formation. Right middle cerebral artery: Unremarkable. No occlusion or significant stenosis. No aneurysm. Right anterior cerebral artery: Unremarkable. No occlusion or significant stenosis. No aneurysm. Left internal carotid artery: Calcified plaque of the cavernous and intradural left internal carotid artery, with mild vessel stenosis. No evidence of occlusion or aneurysm formation. Left middle cerebral artery: Unremarkable. No occlusion or significant stenosis. No aneurysm. Left anterior cerebral artery: Unremarkable. No occlusion or significant stenosis. No aneurysm. POSTERIOR CIRCULATION: Right vertebral artery: Unremarkable. No occlusion or significant stenosis. No aneurysm. Left vertebral artery: The left vertebral artery is hypoplastic, functionally terminating in a left PICA without significant contribution to the vertebrobasilar junction. Ozge-ap-avidmgam stenosis of the proximal left V4 segment. Basilar artery: Unremarkable. No occlusion or significant stenosis. No aneurysm. Right posterior cerebral artery: Unremarkable. No occlusion or significant stenosis. No aneurysm. Left posterior cerebral artery: Unremarkable. No occlusion or significant stenosis. No aneurysm. Brain: Generalized cerebral and cerebellar volume loss is within normal limits for the patient's age. Subcortical and deep white matter hypodensities are consistent with chronic small vessel ischemic disease. No CT evidence of acute transcortical infarction. No acute intracranial hemorrhage, edema, midline shift, or mass effect. Cerebral ventricles: No ventriculomegaly. Orbital cavity: Senile calcification of the left globe. Bones/joints: Unremarkable. No acute fracture. Soft tissues: Unremarkable. IMPRESSION: 1. No anterior large vessel occlusion is appreciated. 2. Mild chronic small vessel ischemic changes of the cerebral hemispheres. No CT evidence of acute infarction. PROCEDURE INFORMATION: Exam: CT Angiography Neck With Contrast Exam date and time: 04/17/2021 2:29 PM Age: 86 years old Clinical indication: Dizziness and giddiness TECHNIQUE: Imaging protocol: Computed tomography angiography of the neck with contrast. 3D rendering (Not supervised by radiologist): MIP and/or 3D reconstructed images were created by the technologist. Contrast material: OMNIPAQUE 350; Contrast volume: 85 ml; Contrast route: INTRAVENOUS (IV); COMPARISON: CR XR CERVICAL SPINE COMP 4-5V 09/23/2020 12:32 PM FINDINGS: Right common carotid artery: No stenosis. No dissection or occlusion. Right internal carotid artery: Minimal calcified plaque at the right internal carotid artery origin. No significant stenosis (0% by NASCET criteria). Moderate tortuosity of the cervical right internal carotid artery. Right external carotid artery: No occlusion or stenosis of the origin. Left common carotid artery: Common origin of the right brachiocephalic and left common carotid arteries. Left internal carotid artery: Mild mixed calcified and atheromatous plaque at the left internal carotid artery origin with mild ulceration. No significant stenosis (0% by NASCET criteria). Iusr-[id number]-[id number] tortuosity of the cervical left internal carotid artery. Left external carotid artery: No occlusion or stenosis of the origin. Right vertebral artery: No stenosis. No dissection or occlusion. Left vertebral artery: No stenosis. No dissection or occlusion. Aorta: Mild atherosclerosis of the visualized aortic arch. Thyroid: Dominant nodule of the right thyroid measures up to 1.8 cm. Soft tissues: Normal. No significant soft tissue swelling. Bones/joints: Degenerative changes of the cervical spine, with grade 1 anterolisthesis of C3 and C4. No gross high-grade spinal canal stenosis is appreciated. IMPRESSION: 1. Mild atherosclerosis of the neck, without significant vessel stenosis. 2. Mild to moderate tortuosity of the cervical internal carotid arteries, a nonspecific finding that may be seen with chronic hypertension. Correlate with the patient's history. 3. Dominant nodule of the right thyroid measures 1.8 cm. By ACR guidance, further evaluation with nonemergent ultrasound is recommended. REFERENCES: NASCET CRITERIA. The degree of internal carotid artery stenosis is based on NASCET criteria. Normal is no stenosis. Mild is less than 50% stenosis. Moderate is 50-69% stenosis. Severe is 70% to 99% stenosis. Total occlusion is no detectable patent lumen. Dictated and Authenticated by: Kodak Adamson MD. Ordering:CUONG Escobar MD
[2021-04-17 17:17] VITALS: BP 164/67; PULSE 65
--- NOTE | 2021-04-18 10:09 | PDOC.ERCMACT ---
- If Service Date Differs Date of service: 04/18/21 Time of Service: 10:09 Care Management Activity Note Nhi is seen in the ED for complaints of vertigo and rectocele. At the request of ED provider, CM coordinates a referral to [facility] [place] [facility] for evaluation and treatment of possible rectocele.
== END 2021-04-17 17:35 | disposition home or self-care (01) ==
PROVIDERS: Physician Assistant; Emergency Provider Registered Nurse Emergency; PCP Internal Medicine
DX: N81.6 Rectocele (principal); R42 Dizziness and giddiness
CPT/HCPCS: 70496; 70498; 80053; 93005; 96360; 96361; 99285; 81003; 83735; 84484; 85025; 93010; 99284; J3490

== ENCOUNTER → 2021-05-11 11:09 | Outpatient (BNVA) | payer MEDICARE, SELFPAY | PROVIDERS: PCP Internal Medicine; Referring Provider Internal Medicine; Visit Provider Surgery | DX: K62.3 Rectal prolapse (principal) | CPT/HCPCS: 99214; 99243 ==

== ENCOUNTER 2021-05-13 10:10 | Emergency (ER) | payer MEDICARE, SELFPAY ==
[2021-05-13 10:17] VITALS: BP 175/71; PULSE 74; RESP 18; TEMP 36.8; O2SAT 97
[2021-05-13 11:42] VITALS: RESP 18
--- NOTE | 2021-05-13 12:13 | ED.GENADUL_ITS ---
Discharge Plan Disposition Patient Disposition: HOME Condition: Stable Discharge Details Clinical Impression: Sciatica Primary Care Provider: Bryanna Kumar ED Provider: Lexis Ramirez Home Meds and New Rx's Prescriptions: New methocarbamol 500 mg tablet 500 mg PO Q6H PRN (Reason: muscle spasm) Qty: 14 RF: 0 prednisone 20 mg tablet See Rx Instructions .ROUTE .COMPLEX Qty: 18 RF: 0 Continued omega 3,6,9 combination no.7 92 mg (43 mg-22 [id number]) tablet,chewable PO DAILY RF: 0 prevagen PO DAILY RF: 0 famotidine 20 mg tablet 20 mg PO BID Qty: 60 RF: 5 fluoxetine 10 mg capsule 10 mg PO QAM Qty: 90 RF: 3 docusate sodium [Colace] 100 mg capsule 100 mg PO BID Qty: 60 RF: 12 polyethylene glycol 3350 [Miralax] 17 gram/dose powder 17 g PO DAILY PRN (Reason: constipation) Qty: 510 RF: 12 albuterol sulfate 90 mcg/actuation HFA aerosol inhaler 1 puff inhalation QID PRN (Reason: shortness of breath or wheezing) Qty: 1 RF: 2 (DME) Aerovent Plus Spacer See Rx Instructions .ROUTE .MEDSUPPLY Qty: 1 RF: 0 amitriptyline 25 mg tablet 25 mg PO BID PRN (Reason: Insomnia, fibromyalgia) Qty: 180 RF: 3 amlodipine 5 mg tablet 5 mg PO DAILY Qty: 90 RF: 1 aspirin 325 MG tablet 650 mg PO DAILY PRNRF: 0 acetaminophen [Tylenol Extra Strength] 500 MG tablet 1,000 mg PO PRN RF: 0 calcium carbonate [Tums Ultra] 400 MG tablet,chewable 400 mg PO PRN RF: 0 diphenhydramine-acetaminophen [Tylenol PM Extra Strength] 1 EACH tablet 1 ea PO PRN RF: 0 naproxen sodium 550 MG tablet 550 mg PO BID PRNQty: 60 RF: 1 meclizine 12.5 mg tablet 12.5 mg PO TID PRN (Reason: dizziness) Qty: 14 RF: 0 Discharge Instructions Instructions: Sciatica (ED) Additional Instructions: Your symptoms appear most likely consistent with sciatica. Other possibilities include muscle strain or arthritis. At this point in time, your exam does not appear consistent with a blood clot. If your symptoms change or worsen or you develop a cold, pale or swollen leg, return immediately to the emergency department for reevaluation. Prescriptions for steroids and muscle relaxers have been sent electronically to your pharmacy. Alternate tylenol and motrin as needed and directed for pain. You are also being sent home with oxycodone to take as needed for breakthrough pain not relieved by Tylenol or ibuprofen. Follow-up with your primary care doctor in 1 week. Return to the emergency department with any worsening or new concerning symptoms. Discharge Data Discharge Date/Time-TO BE ENTERED AT DEPARTURE: 05/13/21 12:45 Discharge Physician: Lexis Ramirez Medical Decision Making 86-year-old female presents with 3 days of left lower back, buttock pain with radiation to her left leg with tingling in her left anterior leg. No other cauda equina symptoms. Denies injury, fever or significant calf pain. Blood pressure hypertensive, remainder vitals within normal limits. Patient appears comfortable and nontoxic. She has reproducible pain in her left lumbar paraspinal region and low upper buttock. She has slightly diminished left patellar reflex but otherwise no other focal deficits. She is neurovascularly intact. Suspect most likely sciatica. Also consider DJD, arthritis, lumbar strain, disc herniation. History and presentation does not appear consistent with DVT or cauda equina syndrome at this time. Do not see an indication for lab work or imaging at this time. Will give a dose of IM Toradol, p.o. Valium and prednisone. Will send home with oxycodone bottle if needed and prescription for steroids and muscle relaxer sent electronically to her pharmacy. Patient feels comfortable with plan. Advised to follow up with the primary care doctor for re-evaluation. Usual and customary return precautions given prior to discharge. Medical Records Medical records reviewed: Yes I reviewed the patient's medical records. HPI General Mode of arrival: ambulatory . Date/Time Provider Initiated Documentation: 05/13/21 10:36 . Limitations to Documentation: no limitations . Information obtained by: patient . HPI Narrative: Patient is an 86-year-old female with a history of fibromyalgia, and arthritis presents for left buttock and leg pain for the past 3 days. She states her pain radiates from her left lower back, buttock down her left leg. She states the pain radiates in the back, side and front of her thigh and down the anterior aspect of her leg and associated with tingling in her anterior leg. She denies any significant calf pain. She states the pain is worse with walking and weightbearing. She denies any bowel or bladder incontinence, saddle anesthesia, fever, abdominal pain or vomiting. She took Tylenol this morning without relief. She denies any known injury. Related Data Home Medications Medication Instructions Recorded Confirmed acetaminophen [Tylenol Extra 1,000 mg PO PRN tab-cap 10/10/12 05/13/21 Strength] aspirin 650 mg PO DAILY PRN tab-cap 10/10/12 05/13/21 calcium carbonate [Tums Ultra] 400 mg PO PRN tab.chew 10/10/12 05/13/21 diphenhydramine-acetaminophen 1 ea PO PRN 10/10/12 05/13/21 [Tylenol PM Extra Strength] naproxen sodium 550 mg PO BID PRN #60 tab-cap 04/09/14 05/13/21 albuterol sulfate 90 mcg/actuation 1 puff INHALATION QID PRN #1 inh 03/01/20 05/13/21 aerosol inhaler inhalational spacing device #1 ea 03/01/20 04/19/21 amitriptyline 25 mg tablet 25 mg PO BID PRN #180 tab-cap 09/23/20 05/13/21 omega 3,6,9 combination no.7 92 mg mg PO DAILY tab 02/01/21 05/12/21 (43 mg-22 [id number]) chew tablet prevagen PO DAILY 02/01/21 05/12/21 amlodipine 5 mg tablet 5 mg PO DAILY #90 tab 03/08/21 05/13/21 famotidine 20 mg tablet 20 mg PO BID #60 tab 04/05/21 05/13/21 fluoxetine 10 mg capsule 10 mg PO QAM #90 tab-cap 04/05/21 05/13/21 meclizine 12.5 mg PO TID PRN #14 tab 04/17/21 05/13/21 docusate sodium 100 mg capsule 100 mg PO BID #60 cap 05/11/21 05/13/21 polyethylene glycol 3350 17 17 g PO DAILY PRN #510 g 05/11/21 05/13/21 gram/dose oral powder methocarbamol 500 mg PO Q6H PRN #14 tab 05/13/21 prednisone See Rx Instructions .ROUTE 05/13/21 .COMPLEX #18 tab Previous Rx's Medication Instructions Recorded albuterol sulfate 90 mcg/actuation 1 puff INHALATION QID PRN #1 inh 03/01/20 aerosol inhaler inhalational spacing device #1 ea 03/01/20 amitriptyline 25 mg tablet 25 mg PO BID PRN #180 tab-cap 09/23/20 amlodipine 5 mg tablet 5 mg PO DAILY #90 tab 03/08/21 famotidine 20 mg tablet 20 mg PO BID #60 tab 04/05/21 fluoxetine 10 mg capsule 10 mg PO QAM #90 tab-cap 04/05/21 meclizine 12.5 mg PO TID PRN #14 tab 04/17/21 docusate sodium 100 mg capsule 100 mg PO BID #60 cap 05/11/21 polyethylene glycol 3350 17 17 g PO DAILY PRN #510 g 05/11/21 gram/dose oral powder methocarbamol 500 mg PO Q6H PRN #14 tab 05/13/21 prednisone See Rx Instructions .ROUTE 05/13/21 .COMPLEX #18 tab Allergies Allergy/AdvReac Type Severity Reaction Status Date / Time Latex, Natural Rubber Allergy Severe rash Verified 05/13/21 10:19 General Stated Complaint: Vascular VICKIE: 4 Review of Systems All systems reviewed & are unremarkable except as noted in HPI and below Constitutional Constitutional: Reports as per HPI, Denies chills and Denies fever(s) Eyes Eyes: Denies blurry vision ENT Ears, Nose, Mouth, and Throat: Denies dizziness, Denies sore throat and Denies throat swelling Cardiovascular Cardiovascular: Denies chest pain and Denies dyspnea Respiratory Respiratory: Denies cough and Denies dyspnea Gastrointestinal Gastrointestinal: Denies abdominal pain, Denies diarrhea and Denies vomiting Genitourinary Genitourinary: Denies hematuria and Denies dysuria Musculoskeletal Musculoskeletal: Denies back pain, Denies numbness and Reports other (L leg pain) Integumentary/Breasts Skin/Breast: Denies lesions and Denies rash Neurologic Neurologic: Denies dizziness, Denies localized weakness and Denies numbness Allergic/Immunologic Allergic/Immunologic: Denies throat swelling PFSH All Active Problems (Updated 05/13/21 @ 12:23 by Lexis J Bugbee, DO) Sciatica (Acute) Complete rectal prolapse (Acute) grade 3 Rectocele (Acute) Dizziness (Acute) Osteopenia determined by x-ray (Acute) Cervical stenosis of spinal canal (Acute) Tick bite (Acute) Anxiety (Chronic) Other chronic pain (Acute 03/16/15) Hypertension (Chronic) Rectocele (Acute 02/04/13) Osteoarthritis (Acute) LS spine, L hip; hydrocodone/apap Rx Irritable bowel syndrome with constipation (Acute 03/21/16) probable Dx Headache (Acute 09/11/11) amitriptyline Rx Gastroesophageal reflux disease with esophagitis (Acute 03/21/16) Fibromyalgia (Acute 09/11/11) amitriptyline Rx Cystocele (Acute 02/04/13) Chronic constipation (Acute 03/21/16) Atypical chest pain (Acute 09/11/11) NL MPI 12/25/2004 Medical History (Updated 05/13/21 @ 12:23 by Lexis Ramirez DO) Acute pain of left shoulder Aphthous ulcer of mouth Basal cell adenocarcinoma BPV (benign positional vertigo) Right shoulder strain Skin rash Surgical History Hysterectomy lap uteroscaral ligament suspension,repair and sling (06/01/13) [facility], Dr. Jose Ruiz Family History Mother Essential hypertension Father Heart disease Sister Essential hypertension Hyperlipidemia Social History Smoking/Tobacco Use Status: Never Smoking risk assessment performed?: Yes Alcohol Intake: current Alcohol Intake frequency: a few times a week Alcohol type: wine and hard liquor Drug use: Never Substance use type: does not use Household members: spouse Housing: house Number of Children: 8 Communication Needs: Hard of Hearing and Corrective Lenses Do you need help understanding health information?: Never Current gender identity: female What is your relationship status?: Panel score (0-1 are the most socially isolated patients): 1 What type of physical activity do you participate in: none Seatbelt use: always Working smoke detector in home: Yes Carbon monox detector in home: Yes Do you feel safe at home: Yes Do you feel safe in your relationship?: Yes Exam Const General: cooperative, healthy appearing and no acute distress HENMT Head: normal to inspection Face and sinus: normal facial exam Eyes General: appearance normal, both eyes and all related structures EOM: EOM intact bilaterally Neck Neck: normal visual inspection and No submandibular swelling Lymphatic: no lymphadenopathy noted Chest Chest: normal inspection of the chest and no tenderness Resp Effort & Inspection: normal respiratory effort and able to speak in complete sentences Auscultation: clear to auscultation bilaterally Cardio Rate: regular rate Rhythm: regular rhythm GI Inspection: normal to inspection Palpation: soft, not firm, not rigid and nontender Auscultation: normal bowel sounds Back/Spine/Pelvis Thoracic/Lumbar Spine: thoracic and lumbar spine normal to inspection Back/spine/pelvis image: 1. Tenderness to palpation L lumbar paraspinal region and L buttock. There is no erythema, edema, ecchymosis, step-off, rash or lesions. Skin General skin exam: no rashes or lesions noted Neuro General: patient alert, patient awake and patient oriented x3 Cognition: normal cognition Speech: speech normal Motor: muscle tone normal throughout and strength 5/5 throughout Sensory Exam: no sensory deficits noted DTR's: Rt Patellar: 1+, Lt Patellar: 0, Rt Ankle: 1+ and Lt Ankle: 1+ Plantar Reflexes: Equivocal: bilateral (negative babinski b/l ) Extrem General: normal to inspection, full ROM, capillary refill normal, no clubbing, cyanosis or edema, no calf tenderness, no calf tenderness bilaterally and no edema Other: Bilateral DP/PT pulses intact. Psych Appearance: grossly normal Mental Status: mental status grossly normal Speech and Movement: speech and movement normal Affect: normal affect Course Vital Signs Vital signs: Vital Signs Temperature 98.2 F 05/13/21 10:17 Pulse 74 05/13/21 10:17 Respiratory Rate 18 05/13/21 10:17 Blood Pressure 175/71 H 05/13/21 10:17 Pulse Oximetry 97 05/13/21 10:17 Temperature 98.2 F 05/13/21 10:17 Temperature Source Temporal Artery Scan 05/13/21 10:17 Pulse 74 05/13/21 10:17 Respiratory Rate 18 05/13/21 11:42 Respiratory Effort Non-Labored 05/13/21 11:42 Respiratory Depth Normal 05/13/21 11:42 Respiratory Pattern Normal 05/13/21 11:42 Blood Pressure 175/71 H 05/13/21 10:17 Blood Pressure Position Supine 05/13/21 10:17 Pulse Oximetry 97 05/13/21 10:17 Oxygen Delivery Method Room Air 05/13/21 10:17 Oxygen Flow Rate 0 05/13/21 10:17 Pain Level 10 05/13/21 10:17 PAWSS Have you Been Recently Intoxicated or Drunk Within the Last 30 days?: No Have you Ever Experienced Previous Episodes of Alcohol Withdrawal?: No Have you ever Experienced Withdrawal Seizures?: No Have you ever Experienced Delirium Tremens(DT)s?: No Have you ever undergone Alcohol Rehabilitation Treatment (i.e, inpt ot outpatient treatment programs)?: No Have you ever Experienced Blackouts?: No Have you ever Combined Alcohol with other Downers within the last 90 days?: No Have you ever Combined Alcohol with any other Substance of Abuse during the last 90 days?: No Positive Blood Alcohol level on Presentation? [PCS.BAL]: No Evidence of Increased Autonomic Activity (i.e. HR>120, tremor, sweating, agitation, nausea)?: No Result: 0
[2021-05-13] MEDS: diazePAM 5 MG TAB PO (12:22)
[2021-05-13] MEDS: predniSONE 20 MG TAB 60 MG PO (12:23)
[2021-05-13] MEDS: Ketorolac 60 MG/2 ML VIAL IM (12:23)
[2021-05-13 12:46] VITALS: BP 208/94; PULSE 80; RESP 18; O2SAT 94
== END 2021-05-13 12:45 | disposition home or self-care (01) ==
PROVIDERS: Emergency Provider Physician Assistant; PCP Internal Medicine
DX: M53.3 Sacrococcygeal disorders, not elsewhere classified (principal)
CPT/HCPCS: 96372; 99284; 99283; J1885; J7512

== ENCOUNTER 2022-08-24 13:01 | Outpatient (CLI) | payer MEDICARE, SELFPAY ==
--- NOTE | 2022-08-24 13:30 | DI.RAD_ITS ---
Exam(s) XR LUMBAR SPINE COMPLETE EXAM: XR LUMBAR SPINE COMPLETE CLINICAL HISTORY: ?bulge L SI joint ?solid m54.32 sciatica m54.50 low back pain. TECHNIQUE: 2D digital imaging was performed. Five views. COMPARISON: CR XR DEXA BONE DENSITY W/WO ALBERT from 11/01/2020 FINDINGS: Exam is somewhat limited by large quantity of stool. Vertebral bodies are maintained in height. There are prominent endplate osteophytes greatest at L2-3 and L3-4. There is mild degenerative scoliosis. There is multilevel disc space narrowing, greatest at L2-3. There are prominent facet joint degenerative changes in the lower lumbar spine. No spondy lolysis or spondylolisthesis. Mild degenerative levo scoliosis. SI joints are unremarkable. IMPRESSION: Advanced degenerative changes. DATA REPOSITORY: RADIATION DOSE DELIVERED:
--- NOTE | 2022-08-24 13:30 | DI.RAD_ITS ---
Exam(s) XR SACROILIAC JOINTS EXAM: XR SACROILIAC JOINTS CLINICAL HISTORY: ?bulge L SI joint ?solid m54.32 sciatica m54.50 low back pain. TECHNIQUE: 2D digital imaging was performed. COMPARISON: No exams were available for comparison FINDINGS: Bones: No fracture is present. No bony destructive lesion is seen. Alignment is satisfactory. SI Joint: No fusion or erosions. Mild spurring sclerosis is seen right greater than left.. Soft Tissue: Normal. IMPRESSION: Mild degenerative changes of the SI joints, right greater than left. DATA REPOSITORY: RADIATION DOSE DELIVERED:
== END 2022-08-24 13:21 ==
PROVIDERS: PCP Student in an Organized Health Care Education/Training Program; Visit Provider Nurse Practitioner Family
DX: M54.32 Sciatica, left side (principal); M54.50 Low back pain, unspecified; M41.9 Scoliosis, unspecified
CPT/HCPCS: 72110; 72202

== ENCOUNTER 2022-09-20 11:53 | Emergency (ER) | payer MEDICARE, SELFPAY ==
[2022-09-20] VITALS (12 sets, daily range): BP systolic 117–136; BP diastolic 52–80; PULSE 68–84; RESP 16–22; TEMP 36.4–37.1; O2SAT 92–93
--- NOTE | 2022-09-20 12:41 | ED.GENADUL_ITS ---
Discharge Plan Disposition Patient Disposition: Home Condition: Stable Discharge Details Clinical Impression: UTI (urinary tract infection), Sciatica, Colitis Primary Care Provider: Vielka Francis ED Provider: Lexis Ramirez Home Meds and New Rx's Prescriptions: New methocarbamol 500 mg tablet 500 mg PO Q6H PRN (Reason: muscle spasm) Qty: 14 0RF prednisone 20 mg tablet See Rx Instructions .ROUTE .COMPLEX Qty: 18 0RF Rx Instructions: Take 3 tabs daily for 3 days, then 2 tabs daily for 3 days, then 1 tab daily for 3 days. cephalexin 500 mg capsule 500 mg PO BID 7 Days Qty: 14 0RF Continued omega 3,6,9 combination no.7 92 mg (43 mg-22 [id number]) tablet,chewable PO DAILY prevagen PO DAILY Patient Comments: for memory Heal n soothe systemic enzyme formula PO DAILY methylprednisolone [Medrol (Deniz)] 4 mg tablets,dose pack See Rx Instructions PO DIRECTED Qty: 21 0RF Rx Instructions: 1 pack PO as directed; (DME) Aerovent Plus Spacer See Rx Instructions .ROUTE .MEDSUPPLY Qty: 1 0RF Rx Instructions: As directed; use with albuterol MDI calcium carbonate [Tums Ultra] 400 mg calcium (1,000 mg) tablet,chewable 400 mg PO DAILY PRN albuterol sulfate 90 mcg/actuation HFA aerosol inhaler 1 puff inhalation QID PRN (Reason: shortness of breath or wheezing) Qty: 1 2RF Rx Instructions: 1-2 puffs up to 4 times a day as needed for shortness of breath magnesium oxide 400 mg magnesium capsule 400 mg PO DAILY Shingrix (PF) 50 mcg/0.5 mL suspension for reconstitution 0.5 ml IM ONCE Qty: 1 1RF Rx Instructions: Administer one dose and repeat in 2-6 months aspirin 325 MG tablet 650 mg PO DAILY PRN Rx Instructions: 2 tabs acetaminophen [Tylenol Extra Strength] 500 MG tablet 1,000 mg PO PRN diphenhydramine-acetaminophen [Tylenol PM Extra Strength] 1 EACH tablet 1 ea PO PRN naproxen sodium 550 MG tablet 550 mg PO BID PRNQty: 60 Rx Instructions: for back and hip arthritis Citrucel Sugar Free Powder 2 g PO DAILY Rx Instructions: 07/17/21 [facility] [place] [employer] Start 1 tsp daily w/large glass of water for 1 week then 2 tsp for 1 week the n 1 tblsp daily for maintenance. May increase slowly to to 2 tblsp if needed amitriptyline 25 mg tablet 25 mg PO BID PRN (Reason: Insomnia, fibromyalgia) Qty: 180 3RF Rx Instructions: One every night. One in the AM if needed for fibromyalgia. amlodipine 5 mg tablet 5 mg PO DAILY Qty: 90 3RF valsartan 160 mg tablet 160 mg PO DAILY Qty: 90 3RF Rx Instructions: take one daily cyclobenzaprine 5 mg tablet 5 mg PO TID PRN (Reason: muscle spasm) Qty: 30 1RF Discharge Instructions Instructions: Urinary Tract Infection in Women (ED), Sciatica (ED) Additional Instructions: Your urine sample shows that you have a possible urinary tract infection. A prescription for antibiotics has been sent electronically to your pharmacy. The CT scan of your abdomen and pelvis shows that you have possible colitis which is an inflammation of your bowel wall which can be seen in the setting of diarrhea or a viral illness. The CT scan of your lumbar spine shows arthritis but possibly also shows evidence of infection in the bone. As you have no fever, no evidence of infection on your back and have a reassuring exam the possibility of an inf ection of your bone seems less likely. An MRI of your lumbar spine has been ordered as an outpatient to rule out an infection in your bone. Stay in contact with the radiology department to confirm scheduling of this test as soon as possible, preferably within the next 1 to 2 days. Prescriptions for steroids and muscle relaxers have been sent electronically to your pharmacy to take as needed and directed for your back pain. You are being placed on care management's list to arrange for a follow-up appointment with a primary care doctor in your office for reevaluation within the next few days. Return immediately to the emergency department if you develop any worsening or new concerning symptoms such as fever, worsening pain, difficulty walking or bowel or bladder incontinence. Discharge Data Discharge Physician: Lexis Ramirez Medical Decision Making 1300 -- 87-year-old female with a history of migraines, osteoarthritis, fibromyalgia, hysterectomy and hemorrhoidectomy presents with left-sided lower back pain with radiation to her left leg for the past 5 weeks now with right-s ided lower back pain and lower abdominal pain, nausea, and episode of bright red rectal bleeding and dizziness yesterday. Vitals within normal limits. Patient appears fairly comfortable and nontoxic. She has tenderness to palpation to her midline lumbar spine and bilateral SI joint and buttocks. She otherwise has no focal deficits and is neurovascular intact. She has normal rectal tone and negative guaiac with brown stool. Her abdomen is tender across the lower quadrants and epigastrium. Discussed with patient that her back pain and lower abdominal pain could be separate etiologies but will try to rule out any acute abnormality. Discussed that her back and leg pain could certainly be sciatica and other possibilities include disc herniation, compression fracture, muscle strain. She has no cauda equina symptoms or focal deficits to suggest cauda equina syndrome. She has no pulsatile mass or peritoneal signs to suggest ruptured aneurysm. Will obtain screening labs, CT abdomen pelvis with lumbar spine recons and give IV Tylenol, IV Decadron and p.o. Valium and reassess. 1600 --Labs and imaging reviewed. White blood cell count 11.88. Lactate 0.9. ESR normal at 13. CRP elevated at 13. Initial clean-catch urine noted to many epithelial cells but with 5-10 WBCs, positive nitrite and many bacteria. Able to obtain a cath specimen which again notes nitrites but only 0-2 WBCs, negative leukocyte esterase, few bacteria, urine culture sent. FLUVID negative. CT abdomen/pelvis notes: IMPRESSION: 1. Uterus is surgically absent.? No abnormal adnexal masses nor free fluid in the pelvis. 2. There is circumferential thickening of the sigmoid over significant distance, consistent with colitis pattern.? No evidence of diverticulosis nor diverticulitis. CT lumbar spine notes: IMPRESSION: 1. Multilevel advanced chronic degenerative disc disease. 2. Adjacent endplate abnormalities the inferior endplate of L2 and superior endplate of L3.? Cannot exclude possibility of discitis-osteomyelitis.? Recommend follow-up MRI. Case discussed with Dr. Hood --if no evidence of epidural abscess on CT, likelihood for osteomyelitis is low. Would recommend urgent outpatient MRI. Although patient CRP is elevated, this can be secondary potentially to a UTI. As she has no fever, minimally elevated white blood cell count to 11.88, has reassuring exam with no evidence of cellulitis and appears nontoxic, do not see an indication for admission for IV antibiotics. Patient reports her back pain is improved and feels comfortable going home. She was given a dose of Rocephin to cover for UTI and if there is a possible developing infection in her disc. An order for an outpatient lumbar spine MRI has been placed. Daughter feels comfortable taking patient home. She was given a couple tabs of Valium to go. Prescriptions for prednisone, methocarbamol and Keflex sent electronically to her pharmacy. She was also given Keflex to go. She was placed on care management list to arrange for a follow-up appoint with her primary care doctor for reevaluation in the next 1 to 2 days. Medical Records Medical records reviewed: Yes I reviewed the patient's medical records. Imaging Data Radiologic Study: Radiologist's impression: CT ABDOMEN ? PELVIS W CLINICAL HISTORY: ? lower abd pain, h/o hysterectomy. ? TECHNIQUE:? Imaging Protocol: Axial computed tomography images with coronal and sagittal reformatted images were created and reviewed CONTRAST MATERIAL:? Intravenous: Omnipaque-350? 100cc Oral: None COMPARISON:? CT CT BRAIN ? NECK CTA from 04/17/2021 FINDINGS: VISUALIZED LUNG BASES: No nodules nor pleural effusions evident.? ABDOMEN: There is no ascites. LIVER: There are no focal hepatic lesions evident. GALLBLADDER/BILIARY: No obvious gallbladder pathology.? CBD is not dilated. PANCREAS: No evidence of pancreatic mass nor dilatation of the pancreatic duct.? SPLEEN: Spleen is not enlarged.? No obvious intrasplenic lesions.? Splenic and portal veins are patent. ADRENALS: There are no significant adrenal masses. KIDNEYS:No cysts evident.? No solid renal masses.? No calculi nor hydronephrosis.. ABDOMINAL AORTA: Calcified but not enlarged. LYMPH NODES:There is no retroperitoneal nor paraaortic adenopathy. ABDOMINAL WALL: No evidence of significant anterior abdominal wall nor inguinal hernia. GI: There is no evidence of bowel obstruction, free air, nor abscess. PELVIS:? GI: No evidence of appendicitis.The sigmoid exhibits circumferentially thickened wall which is 4-5 mm thick over significant length.? Possible colitis pattern.? There is no evidence of acute diverticulitis. LYMPH NODES: There is no intrapelvic nor inguinal adenopathy. REPRODUCTIVE: Uterus is surgically absent.? No abnormal adnexal masses nor free fluid in the pelvis. URINARY BLADDER: No calculi nor obvious masses evident OSSEOUS: No fractures and no significant osseous lesions.? Multilevel chronic degenerative disc disease.? Symmetrical calcification is noted in both hamstrings tendons at the level of the ischial tuberosities bilaterally. IMPRESSION: 1. Uterus is surgically absent.? No abnormal adnexal masses nor free fluid in the pelvis. 2. There is circumferential thickening of the sigmoid over significant distance, consistent with colitis pattern.? No evidence of diverticulosis nor diverticulitis. CT LUMBAR SPINE RECONS CLINICAL HISTORY:? RECONs;midline/b/l lower back pain. ? TECHNIQUE:? Imaging Protocol: Axial computed tomography images with coronal and sagittal reformatted images were created and reviewed COMPARISON:? CT CT ABDOMEN ? PELVIS W from 09/20/2022? FINDINGS: Bones: No compression fractures.? There is multilevel disc space narrowing and multilevel vacuum phenomenon seen within disc spaces.? Also multilevel facet arthropathy At L2-3 level there is advanced disc space narrowing, more so than the other levels but there is also some irregularity of the inferior endplate of L2 and superior endplate of L3, possibly significant with respect to infectious etiology.? Recommend follow-up MRI. IMPRESSION: 1. Multilevel advanced chronic degenerative disc disease. 2. Adjacent endplate abnormalities the inferior endplate of L2 and superior endplate of L3.? Cannot exclude possibility of discitis-osteomyelitis.? Recommend follow-up MRI. Lab Data Lab results reviewed: Yes I reviewed the patient's lab results. Labs: 09/20/22 15:47 Urine - Reflex from Ua Urine Culture - Pending Laboratory Tests Range/Units 09/20/22 09/20/22 09/20/22 12:47 12:54 12:54 WBC (4.4-10.8) 10^3/uL 11.88 H RBC (3.93-5.22) 10^6/uL 4.31 Hgb (11.2-15.7) g/dL 12.8 Hct (36.0-46.0) % 38.9 MCV (80-95) fL 90 MCH (27.0-33.0) pg 29.7 MCHC (32.0-36.0) % 32.9 RDW (11.7-14.6) % 12.7 Plt Count (130-400) 10^3/uL 308 MPV (8.0-11.0) fL 9.8 Immature Gran % 0.3 Neutrophils % 80.1 Lymphocytes % 8.8 Monocytes % 10.3 Eosinophils % 0.2 Basophils % 0.3 Nucleated RBC % (0.0-0.3) % 0.0 Absolute Neutrophils (1.2-6.7) 10^3/uL 9.52 H Absolute Lymphocytes (1.2-3.4) 10^3/uL 1.05 L Absolute Monocytes (0.1-0.8) 10^3/uL 1.22 H Absolute Eosinophils (0.0-0.7) 10^3/uL 0.02 Absolute Basophils (0.0-0.2) 10^3/uL 0.04 ESR (0-30) mm/hr VBG Lactate (0.6-1.4) mmol/L Sodium (136-145) mmol/L 138 Potassium (3.5-5.1) mmol/L 3.7 Chloride (98-107) mmol/L 104 Carbon Dioxide (21.0-32.0) mmol/L 26.8 Anion Gap (3-11) mmol/L 7.2 BUN (7-18) mg/dL 17 Creatinine (0.55-1.02) mg/dL 0.8 Est GFR (CKD-EPI 2020) (mL/min/1.73m2) 72.16 Glucose (74-106) mg/dL 109 H Calcium (8.5-10.1) mg/dL 9.9 Magnesium (1.8-2.4) mg/dL 1.9 Total Bilirubin (0.2-1.0) mg/dL 0.7 AST (15-37) U/L 18 ALT (14-59) U/L 40 Alkaline Phosphatase (46-116) U/L 209 H Troponin I (<or=60) ng/L < 50 C-Reactive Protein (0.0-0.3) mg/dL Total Protein (6.4-8.2) g/dL 7.3 Albumin (3.4-5.0) g/dL 3.5 Urine Color (Yellow) Yellow Urine Clarity (Clear) Cloudy Urine pH (5-8) 5.5 Ur Specific Grover (1.005-1.025) 1.025 Urine Protein (Negative) mg/dL 30 H Urine Ketones (Negative) mg/dL Trace H Urine Blood (Negative) Negative Urine Nitrite (Negative) Positive H Urine Bilirubin (Negative) Negative Urine Urobilinogen (Up to 0.2) mg/dL 1.0 H Ur Leukocyte Esterase (Negative) Small H Urine RBC (0-2) HPF Negative Urine WBC (0-5) HPF 5-10 Ur Epithelial Cells (Negative) HPF Moderate Urine Crystals (Negative) HPF Negative Urine Bacteria (Negative) HPF Many Urine Casts (Negative) LPF Negative Urine Mucus (Negative) Negative Urine Other (Negative) Mod Transitional Ur Culture Indicated? No/Sq. Contamination Urine Glucose (Negative) mg/dL Negative COVID-19 Source SARS-CoV-2 (PCR) (Negative) Influenza Type A (PCR) (Negative) Influenza Type B (PCR) (Negative) RSV (PCR) (Negative) Range/Units 09/20/22 09/20/22 09/20/22 12:54 12:54 12:54 WBC (4.4-10.8) 10^3/uL RBC (3.93-5.22) 10^6/uL Hgb (11.2-15.7) g/dL Hct (36.0-46.0) % MCV (80-95) fL MCH (27.0-33.0) pg MCHC (32.0-36.0) % RDW (11.7-14.6) % Plt Count (130-400) 10^3/uL MPV (8.0-11.0) fL Immature Gran % Neutrophils % Lymphocytes % Monocytes % Eosinophils % Basophils % Nucleated RBC % (0.0-0.3) % Absolute Neutrophils (1.2-6.7) 10^3/uL Absolute Lymphocytes (1.2-3.4) 10^3/uL Absolute Monocytes (0.1-0.8) 10^3/uL Absolute Eosinophils (0.0-0.7) 10^3/uL Absolute Basophils (0.0-0.2) 10^3/uL ESR (0-30) mm/hr 13 VBG Lactate (0.6-1.4) mmol/L Sodium (136-145) mmol/L Potassium (3.5-5.1) mmol/L Chloride (98-107) mmol/L Carbon Dioxide (21.0-32.0) mmol/L Anion Gap (3-11) mmol/L BUN (7-18) mg/dL Creatinine (0.55-1.02) mg/dL Est GFR (CKD-EPI 2020) (mL/min/1.73m2) Glucose (74-106) mg/dL Calcium (8.5-10.1) mg/dL Magnesium (1.8-2.4) mg/dL Total Bilirubin (0.2-1.0) mg/dL AST (15-37) U/L ALT (14-59) U/L Alkaline Phosphatase (46-116) U/L Troponin I (<or=60) ng/L C-Reactive Protein (0.0-0.3) mg/dL 13.00 H Total Protein (6.4-8.2) g/dL Albumin (3.4-5.0) g/dL Urine Color (Yellow) Urine Clarity (Clear) Urine pH (5-8) Ur Specific Grover (1.005-1.025) Urine Protein (Negative) mg/dL Urine Ketones (Negative) mg/dL Urine Blood (Negative) Urine Nitrite (Negative) Urine Bilirubin (Negative) Urine Urobilinogen (Up to 0.2) mg/dL Ur Leukocyte Esterase (Negative) Urine RBC (0-2) HPF Urine WBC (0-5) HPF Ur Epithelial Cells (Negative) HPF Urine Crystals (Negative) HPF Urine Bacteria (Negative) HPF Urine Casts (Negative) LPF Urine Mucus (Negative) Urine Other (Negative) Ur Culture Indicated? Urine Glucose (Negative) mg/dL COVID-19 Source Nasopharynx SARS-CoV-2 (PCR) (Negative) Negative Influenza Type A (PCR) (Negative) Negative Influenza Type B (PCR) (Negative) Negative RSV (PCR) (Negative) Negative Range/Units 09/20/22 09/20/22 15:24 15:47 WBC (4.4-10.8) 10^3/uL RBC (3.93-5.22) 10^6/uL Hgb (11.2-15.7) g/dL Hct (36.0-46.0) % MCV (80-95) fL MCH (27.0-33.0) pg MCHC (32.0-36.0) % RDW (11.7-14.6) % Plt Count (130-400) 10^3/uL MPV (8.0-11.0) fL Immature Gran % Neutrophils % Lymphocytes % Monocytes % Eosinophils % Basophils % Nucleated RBC % (0.0-0.3) % Absolute Neutrophils (1.2-6.7) 10^3/uL Absolute Lymphocytes (1.2-3.4) 10^3/uL Absolute Monocytes (0.1-0.8) 10^3/uL Absolute Eosinophils (0.0-0.7) 10^3/uL Absolute Basophils (0.0-0.2) 10^3/uL ESR (0-30) mm/hr VBG Lactate (0.6-1.4) mmol/L 0.9 Sodium (136-145) mmol/L Potassium (3.5-5.1) mmol/L Chloride (98-107) mmol/L Carbon Dioxide (21.0-32.0) mmol/L Anion Gap (3-11) mmol/L BUN (7-18) mg/dL Creatinine (0.55-1.02) mg/dL Est GFR (CKD-EPI 2020) (mL/min/1.73m2) Glucose (74-106) mg/dL Calcium (8.5-10.1) mg/dL Magnesium (1.8-2.4) mg/dL Total Bilirubin (0.2-1.0) mg/dL AST (15-37) U/L ALT (14-59) U/L Alkaline Phosphatase (46-116) U/L Troponin I (<or=60) ng/L C-Reactive Protein (0.0-0.3) mg/dL Total Protein (6.4-8.2) g/dL Albumin (3.4-5.0) g/dL Urine Color (Yellow) Yellow Urine Clarity (Clear) Clear Urine pH (5-8) 6.0 Ur Specific Grover (1.005-1.025) 1.010 Urine Protein (Negative) mg/dL Negative Urine Ketones (Negative) mg/dL Negative Urine Blood (Negative) Negative Urine Nitrite (Negative) Positive H Urine Bilirubin (Negative) Negative Urine Urobilinogen (Up to 0.2) mg/dL 1.0 H Ur Leukocyte Esterase (Negative) Negative Urine RBC (0-2) HPF Negative Urine WBC (0-5) HPF 0-2 Ur Epithelial Cells (Negative) HPF Rare Urine Crystals (Negative) HPF Negative Urine Bacteria (Negative) HPF Few Urine Casts (Negative) LPF Negative Urine Mucus (Negative) Negative Urine Other (Negative) Ur Culture Indicated? Yes Urine Glucose (Negative) mg/dL Negative COVID-19 Source SARS-CoV-2 (PCR) (Negative) Influenza Type A (PCR) (Negative) Influenza Type B (PCR) (Negative) RSV (PCR) (Negative) ECG Data Attestation: I personally reviewed and interpreted this ECG (s) as follows: HPI General Mode of arrival: ambulatory . Date/Time Provider Initiated Documentation: 09/20/22 11:59 . Limitations to Documentation: no limitations . Information obtained by: patient . HPI Narrative: Patient is an 87-year-old female with a history of fibromyalgia, GERD, arthritis, migraines, hysterectomy, hemorrhoidectomy presents for 5 weeks of left-sided lower back pain radiating to her left leg now with lower abdominal pain, nausea, rectal bleeding since yesterday. Patient states she saw her primary care doctor a few weeks ago for her back and leg pain and was diagnosed with sciatica. She states she was advised to take ibuprofen and Tylenol and was given prescriptions for a Medrol Dosepak and she thinks Flexeril without relief. She states over the last few days the pain is gotten worse. She states it is mainly in her left lower back extending into her left hip, left buttock and down the front and back of her left leg to her ankle. She states she has now develo ping pain in her right lower back but denies any right leg pain. She denies any bowel or bladder incontinence, saddle anesthesia, leg weakness or numbness. She reports yesterday she developed sharp constant lower abdominal pain. She admits to nausea and has had decreased appetite this morning. She states she has been having multiple bowel movements today which were initially formed but now soft. She states the stool is brown and denies any rectal bleeding today. She does report that with a bowel movement yesterday she noted bright red blood on the toilet paper. She states this seems to have resolved. She does report a history of hemorrhoids and has some rectal pain. She denies any known fever, chest pain, difficulty breathing, urinary symptoms. She has not taken anything for pain today. She reports a brief episode of dizziness yesterday but none today. Related Data Home Medications Medication Instructions Recorded Confirmed acetaminophen 500 mg tablet 1,000 mg PO PRN 10/10/12 08/24/22 (Tylenol Extra Strength) aspirin 325 mg tablet 650 mg PO DAILY PRN 10/10/12 09/20/22 diphenhydramine 25 1 ea PO PRN 10/10/12 09/20/22 mg-acetaminophen 500 mg tablet (Tylenol PM Extra Strength) naproxen sodium 550 mg tablet 550 mg PO BID PRN #60 tab-caps 04/09/14 08/24/22 inhalational spacing device #1 ea 03/01/20 08/24/22 (Aerovent Plus spacer) omega 3,6,9 combination no.7 92 mg mg PO DAILY 02/01/21 08/24/22 (43 mg-22 [id number]) chew tablet prevagen PO DAILY 02/01/21 08/24/22 calcium carbonate 400 mg calcium 400 mg PO DAILY PRN 08/02/21 08/24/22 (1,000 mg) chewable tablet (Tums Ultra) methylcellulose (laxative) 2 g PO DAILY 08/18/21 08/24/22 (Citrucel Sugar Free oral powder) Heal n soothe systemic enzyme PO DAILY 08/23/21 08/24/22 formula albuterol sulfate 90 mcg/actuation 1 puff inhalation QID PRN 09/27/21 08/24/22 aerosol inhaler shortness of breath or wheezing #1 inh magnesium oxide 400 mg PO DAILY 11/08/21 09/20/22 varicella-zoster glycoE [id number] 0.5 ml IM ONCE #1 ea 11/08/21 08/24/22 adj(PF) 50 mcg/0.5 mL IM susp, kit (Shingrix (PF)) amitriptyline 25 mg tablet 25 mg PO BID PRN Insomnia, 01/04/22 09/20/22 fibromyalgia #180 tab-caps amlodipine 5 mg tablet 5 mg PO DAILY #90 tabs 01/17/22 09/20/22 valsartan 160 mg tablet 160 mg PO DAILY #90 tabs 01/17/22 09/20/22 methylprednisolone 4 mg tablets in See Rx Instructions PO DIRECTED 08/24/22 08/24/22 a dose pack (Medrol (Deniz)) #21 dose pk cyclobenzaprine 5 mg tablet 5 mg PO TID PRN muscle spasm #30 09/05/22 tab-caps cephalexin 500 mg capsule 500 mg PO BID 7 days #14 caps 09/20/22 methocarbamol 500 mg tablet 500 mg PO Q6H PRN muscle spasm #14 09/20/22 tabs prednisone 20 mg tablet See Rx Instructions .Route 09/20/22 .COMPLEX #18 tabs Previous Rx's Medication Instructions Recorded inhalational spacing device #1 ea 03/01/20 (Aerovent Plus spacer) albuterol sulfate 90 mcg/actuation 1 puff inhalation QID PRN 09/27/21 aerosol inhaler shortness of breath or wheezing #1 inh varicella-zoster glycoE [id number] 0.5 ml IM ONCE #1 ea 11/08/21 adj(PF) 50 mcg/0.5 mL IM susp, kit (Shingrix (PF)) amitriptyline 25 mg tablet 25 mg PO BID PRN Insomnia, 01/04/22 fibromyalgia #180 tab-caps amlodipine 5 mg tablet 5 mg PO DAILY #90 tabs 01/17/22 valsartan 160 mg tablet 160 mg PO DAILY #90 tabs 01/17/22 methylprednisolone 4 mg tablets in See Rx Instructions PO DIRECTED 08/24/22 a dose pack (Medrol (Deniz)) #21 dose pk cyclobenzaprine 5 mg tablet 5 mg PO TID PRN muscle spasm #30 09/05/22 tab-caps cephalexin 500 mg capsule 500 mg PO BID 7 days #14 caps 09/20/22 methocarbamol 500 mg tablet 500 mg PO Q6H PRN muscle spasm #14 09/20/22 tabs prednisone 20 mg tablet See Rx Instructions .Route 09/20/22 .COMPLEX #18 tabs Allergies Allergy/AdvReac Type Severity Reaction Status Date / Time Latex, Natural Rubber Allergy Severe rash Verified 09/20/22 12:31 General Stated Complaint: Nk/Back Pain VICKIE: 3 Review of Systems All systems reviewed & are unremarkable except as noted in HPI and below Constitutional Constitutional: Reports as per HPI, Denies chills and Denies fever(s) Eyes Eyes: Denies blurry vision ENT Ears, Nose, Mouth, and Throat: Denies dizziness, Denies sore throat and Denies throat swelling Cardiovascular Cardiovascular: Denies chest pain and Denies dyspnea Respiratory Respiratory: Denies cough and Denies dyspnea Gastrointestinal Gastrointestinal: Reports abdominal pain, Reports hematochezia, Denies diarrhea, Reports nausea and Denies vomiting Genitourinary Genitourinary: Denies hematuria and Denies dysuria Musculoskeletal Musculoskeletal: Reports back pain and Denies numbness Integumentary/Breasts Skin/Breast: Denies lesions and Denies rash Neurologic Neurologic: Denies dizziness, Denies localized weakness and Denies numbness Allergic/Immunologic Allergic/Immunologic: Denies throat swelling PFSH All Active Problems (Updated 09/20/22 @ 17:43 by Lexis Ramirez DO) UTI (urinary tract infection) (Acute) Sciatica (Acute) Colitis (Acute) Muscle weakness (Acute) Dependent for meal preparation (Acute) Pain aggravated by standing (Acute) Ambulates with cane (Acute) Balance problem (Acute) Cognitive decline (Chronic) Vaginal vault prolapse (Acute) 10/18/21 [employer] - plan is for pessary fitting Complete rectal prolapse (Acute) grade 3 Osteopenia determined by x-ray (Acute) Cervical stenosis of spinal canal (Acute) Anxiety (Chronic) Other chronic pain (Acute 03/16/15) Hypertension (Chronic) Rectocele (Acute 02/04/13) Osteoarthritis (Acute) LS spine, L hip; hydrocodone/apap Rx Headache (Acute 09/11/11) amitriptyline Rx Gastroesophageal reflux disease with esophagitis (Acute 03/21/16) Fibromyalgia (Acute 09/11/11) amitriptyline Rx Cystocele (Acute 02/04/13) Chronic constipation (Acute 03/21/16) Atypical chest pain (Acute 09/11/11) NL MPI 12/25/2004 Medical History Acute pain of left shoulder Aphthous ulcer of mouth Basal cell adenocarcinoma BPV (benign positional vertigo) Dizziness Right shoulder strain Skin rash Tick bite Surgical History Hysterectomy lap uteroscaral ligament suspension,repair and sling [facility]01/13[facility] History Mother Essential hypertension Father Heart disease Sister Essential hypertension Hyperlipidemia Social History Smoking/Tobacco Use Status: Never Smoking risk assessment performed?: Yes Alcohol Intake: current Alcohol Intake frequency: a few times a week Alcohol type: wine and hard liquor Drug use: Never Substance use type: does not use Household members: spouse Housing: house Number of Children: 8 Communication Needs: Hard of Hearing and Corrective Lenses Do you need help understanding health information?: Never Current gender identity: female What is your relationship status?: Panel score (0-1 are the most socially isolated patients): 1 What type of physical activity do you participate in: none Seatbelt use: always Working smoke detector in home: Yes Carbon monox detector in home: Yes Do you feel safe at home: Yes Do you feel safe in your relationship?: Yes Exam Const General: cooperative and no acute distress Orientation: alert, awake and oriented x3 HENMT Head: normal to inspection Face and sinus: normal facial exam Eyes General: appearance normal, both eyes and all related structures Pupils: PERRL EOM: EOM intact bilaterally Neck Neck: normal visual inspection and No submandibular swelling Lymphatic: no lymphadenopathy noted Chest Chest: normal inspection of the chest and no tenderness Resp Effort & Inspection: normal respiratory effort and able to speak in complete sentences Auscultation: clear to auscultation bilaterally Cardio Rate: regular rate Rhythm: regular rhythm GI Inspection: normal to inspection Palpation: soft, not firm, not rigid and tender in the epigastrum, in the LLQ, in the RLQ and suprapubicly Auscultation: hypoactive bowel sounds Back/Spine/Pelvis Thoracic/Lumbar Spine: thoracic and lumbar spine normal to inspection and lumbar spinal tenderness Skin General skin exam: no rashes or lesions noted Neuro General: patient alert, patient awake and patient oriented x3 Cognition: normal cognition Speech: speech normal Motor: muscle tone normal throughout and strength 5/5 throughout Sensory Exam: no sensory deficits noted DTR's: Rt Patellar: 1+, Lt Patellar: 1+, Rt Ankle: 1+ and Lt Ankle: 1+ Plantar Reflexes: Equivocal: bilateral (negative babinski b/l ) Extrem General: normal to inspection, full ROM, capillary refill normal, no calf tenderness bilaterally and no edema Other: Tenderness to palpation bilateral SI joints. Psych Appearance: grossly normal Mental Status: mental status grossly normal Speech and Movement: speech and movement normal Affect: normal affect Course Vital Signs Vital signs: Vital Signs Pulse 84 09/20/22 12:20 Respiratory Rate 18 09/20/22 12:20 Blood Pressure 136/80 09/20/22 12:20 Pulse Oximetry 93 09/20/22 12:20 Temperature 98.8 F 09/20/22 12:33 Temperature Source Tympanic 09/20/22 12:33 Pulse 84 09/20/22 12:20 Respiratory Rate 18 09/20/22 12:20 Respiratory Effort Normal 09/20/22 12:25 Blood Pressure 136/80 09/20/22 12:20 Blood Pressure Position Supine 09/20/22 12:20 Pulse Oximetry 93 09/20/22 12:20 Oxygen Delivery Method Room Air 09/20/22 12:20 Oxygen Flow Rate 0 09/20/22 12:20
[2022-09-20 13:02] LABS: Abs Immature Grans 0.03 10^3/uL (0.0-0.06); Absolute Basophil Count 0.04 10^3/uL (0.0-0.2); Absolute Eosinophil Count 0.02 10^3/uL (0.0-0.7); Absolute Monocyte Count 1.22 10^3/uL (0.1-0.8); Basophils % 0.3; Eosinophils % 0.2; HCT 38.9 % (36.0-46.0); HGB 12.8 g/dL (11.2-15.7); Immature Grans % 0.3; Lymphocytes % 8.8; MCH 29.7 pg (27.0-33.0); MCHC 32.9 % (32.0-36.0); MCV 90 fL (80-95); MPV 9.8 fL (8.0-11.0); Monocytes % 10.3; Neutrophils % 80.1; Platelet Count 308 10^3/uL (130-400); RBC 4.31 10^6/uL (3.93-5.22); RDW 12.7 % (11.7-14.6); WBC 11.88 10^3/uL (4.4-10.8)
[2022-09-20 13:03] LABS: Absolute Lymphocyte Count 1.05 10^3/uL (1.2-3.4); Absolute Neutrophil Count 9.52 10^3/uL (1.2-6.7)
[2022-09-20 13:20] LABS: ALT 40 U/L (14-59); AST 18 U/L (15-37); Albumin 3.5 g/dL (3.4-5.0); Alkaline Phosphatase 209 U/L (46-116); Anion Gap 7.2 mmol/L (3-11); BUN 17 mg/dL (7-18); Bilirubin, Total 0.7 mg/dL (0.2-1.0); CO2 26.8 mmol/L (21.0-32.0); CREATININE 0.8 mg/dL (0.55-1.02); Calcium 9.9 mg/dL (8.5-10.1); Chloride 104 mmol/L (98-107); Estimated GFR 72.16 (mL/min/1.73m2); Glucose 109 mg/dL (74-106); Magnesium 1.9 mg/dL (1.8-2.4); Potassium 3.7 mmol/L (3.5-5.1); Sodium 138 mmol/L (136-145); Total Protein 7.3 g/dL (6.4-8.2); Troponin I < 50 ng/L (<or=60)
--- NOTE | 2022-09-20 13:39 | DI.CT_ITS ---
Exam(s) CT ABDOMEN PELVIS W EXAM: CT ABDOMEN PELVIS W CLINICAL HISTORY: lower abd pain, h/o hysterectomy. TECHNIQUE: Imaging Protocol: Axial computed tomography images with coronal and sagittal reformatted images were created and reviewed CONTRAST MATERIAL: Intravenous: Omnipaque-350 100cc Oral: None COMPARISON: CT CT BRAIN NECK CTA from 04/17/2021 FINDINGS: VISUALIZED LUNG BASES: No nodules nor pleural effusions evident. ABDOMEN: There is no ascites. LIVER: There are no focal hepatic lesions evident. GALLBLADDER/BILIARY: No obvious gallbladder pathology. CBD is not dilated. PANCREAS: No evidence of pancreatic mass nor dilatation of the pancreatic duct. SPLEEN: Spleen is not enlarged. No obvious intrasplenic lesions. Splenic and portal veins are paten t. ADRENALS: There are no significant adrenal masses. KIDNEYS:No cysts evident. No solid renal masses. No calculi nor hydronephrosis.. ABDOMINAL AORTA: Calcified but not enlarged. LYMPH NODES:There is no retroperitoneal nor paraaortic adenopathy. ABDOMINAL WALL: No evidence of significant anterior abdominal wall nor inguinal hernia. GI: There is no evidence of bowel obstruction, free air, nor abscess. PELVIS: GI: No evidence of appendicitis.The sigmoid exhibits circumferentially thickened wall which is 4-5 mm thick over significant length. Possible colitis pattern. There is no evidence of acute diverticuli tis. LYMPH NODES: There is no intrapelvic nor inguinal adenopathy. REPRODUCTIVE: Uterus is surgically absent. No abnormal adnexal masses nor free fluid in the pelvis. URINARY BLADDER: No calculi nor obvious masses evident OSSEOUS: No fractures and no significant osseous lesions. Multilevel chronic degenerative disc disea se. Symmetrical calcification is noted in both hamstrings tendons at the level of the ischial tuberositie s bilaterally. IMPRESSION: 1. Uterus is surgically absent. No abnormal adnexal masses nor free fluid in the pelvis. 2. There is circumferential thickening of the sigmoid over significant distance, consistent with coli tis pattern. No evidence of diverticulosis nor diverticulitis. Called by myself to ER physician. RADIATION DOSE DELIVERED: Total DLP DATA REPOSITORY: All CT scans at this facility are submitted to the National Radiology Data Registry (NRDR) Dose Index Registry (DIR) with the [employer] (A[employer]). RADIATION OPTIMIZATION: All CT scans at this facility use at least one of these dose optimization te chniques: automated exposure control; mA and/or kV adjustment per patient size (includes targeted exa ms where dose is matched to clinical indication); or iterative reconstruction.
--- NOTE | 2022-09-20 13:42 | DI.CT_ITS ---
Exam(s) CT LUMBAR SPINE RECONS EXAM: CT LUMBAR SPINE RECONS CLINICAL HISTORY: RECONs;midline/b/l lower back pain. TECHNIQUE: Imaging Protocol: Axial computed tomography images with coronal and sagittal reformatted images were created and reviewed COMPARISON: CT CT ABDOMEN PELVIS W from 09/20/2022 FINDINGS: Bones: No compression fractures. There is multilevel disc space narrowing and multilevel vacuum phen omenon seen within disc spaces. Also multilevel facet arthropathy At L2-3 level there is advanced disc space narrowing, more so than the other levels but there is also some irregularity of the inferior endplate of L2 and superior endplate of L3, possibly significant w ith respect to infectious etiology. Recommend follow-up MRI. IMPRESSION: 1. Multilevel advanced chronic degenerative disc disease. 2. Adjacent endplate abnormalities the inferior endplate of L2 and superior endplate of L3. Cannot e xclude possibility of discitis-osteomyelitis. Recommend follow-up MRI. RADIATION DOSE DELIVERED: 1044.74 mGy.cm Total DLP DATA REPOSITORY: All CT scans at this facility are submitted to the National Radiology Data Registry (NRDR) Dose Index Registry (DIR) with the [employer] (ACR). RADIATION OPTIMIZATION: All CT scans at this facility use at least one of these dose optimization te chniques: automated exposure control; mA and/or kV adjustment per patient size (includes targeted exa ms where dose is matched to clinical indication); or iterative reconstruction.
[2022-09-20 13:49] LABS: COVID-19 PCR Negative (Negative); Influenza A PCR Negative (Negative); Influenza B PCR Negative (Negative); RSV PCR Negative (Negative)
[2022-09-20 13:53] LABS: Source Nasopharynx
[2022-09-20] MEDS: Omnipaque 350 MG/ML 100 ML BTL IJ (14:09)
[2022-09-20] MEDS: Normal Saline Flush 10 ML SYR IVP (14:11)
[2022-09-20] MEDS: Normal Saline - Diluent 50 ML VIAL IJ (14:11)
[2022-09-20 14:34] LABS: Bilirubin Negative (Negative); Blood Negative (Negative); Clarity Cloudy (Clear); Glucose Negative (Negative); Ketones Trace mg/dL (Negative); Leukocyte Esterase Small (Negative); Nitrite Positive (Negative); Specific Gravity 1.025 (1.005-1.025); pH 5.5 (5-8)
[2022-09-20 14:45] LABS: Bacteria Many HPF (Negative); C & S Indicated? No/Sq. Contamination; Casts Negative LPF (Negative); Crystals Negative HPF (Negative); Epithelial Cells Moderate HPF (Negative); Mucus Negative (Negative); Other Cells Mod Transitional (Negative); RBC Negative HPF (0-2)
[2022-09-20] MEDS: ACETAMINOPHEN 1,000 MG/100 ML BTL 400 MG IVPB (14:57)
[2022-09-20] MEDS: diazePAM 5 MG TAB PO (14:58)
[2022-09-20] MEDS: Normal Saline 500 ML IV (14:58)
[2022-09-20] MEDS: Dexamethasone 10 MG/ML VIAL IVP (14:58)
[2022-09-20 15:29] LABS: Lactate 0.9 mmol/L (0.6-1.4)
[2022-09-20 15:53] LABS: Bilirubin Negative (Negative); Blood Negative (Negative); Clarity Clear (Clear); Glucose Negative (Negative); Ketones Negative (Negative); Leukocyte Esterase Negative (Negative); Nitrite Positive (Negative)
[2022-09-20 15:59] LABS: ESR 13 mm/hr (0-30)
[2022-09-20 16:03] LABS: Bacteria Few HPF (Negative); C & S Indicated? Yes; Casts Negative LPF (Negative); Crystals Negative HPF (Negative); Epithelial Cells Rare HPF (Negative); Mucus Negative (Negative); RBC Negative HPF (0-2); WBC 0-2 HPF (0-5)
[2022-09-20] MEDS: cefTRIAXone 1 GM/50 ML BAG IVPB (17:08)
--- NOTE | 2022-09-20 18:06 | NUR.NOTE ---
Nursing Note: request fax to DI for lumbar spine Mri W/O contrast./ for back pain with radiation to left leg ?? osteodiscitis on CT scan. follow up with pcp to be done FATUMA
[2022-09-20] MEDS: Cephalexin 500 MG CAP, 2 CAPS/BTL PO (18:25)
[2022-09-20] MEDS: diazePAM 2 MG TAB 4 MG PO (18:25)
--- NOTE | 2022-09-20 18:28 | NUR.NOTE ---
Nursing Note: faxed folloup to [facility] for saturday or saturday for backpain, lumbar pain
--- NOTE | 2022-09-22 09:30 | NUR.NOTE ---
Nursing Note:Accessed chart to look up whether or not on antibiotic.
== END 2022-09-20 18:28 | disposition home or self-care (01) ==
PROVIDERS: Emergency Provider Physician Assistant; PCP Student in an Organized Health Care Education/Training Program
DX: M54.40 Lumbago with sciatica, unspecified side (principal); N39.0 Urinary tract infection, site not specified; K52.9 Noninfective gastroenteritis and colitis, unspecified; M79.7 Fibromyalgia
CPT/HCPCS: 36415; 80053; 85652; 87077; 87637; 96365; 96366; 96367; 96375; 99284; 74177; 81003; 81015; 83605; 83735; 84484; 85025; 86140; 87086; 87186; J0131; J0696; J1100; J3490

== ENCOUNTER 2022-09-21 09:51 | Outpatient (CLI) | payer MEDICARE, SELFPAY ==
--- NOTE | 2022-09-21 | DI.MRI_ITS ---
Exam(s) MR LUMBAR SPINE WO/W EXAM: MR LUMBAR SPINE WO/W CLINICAL HISTORY: BACK PAIN RADIATION TO LT LEG, ? OSTEO/DISCITIS ON CT SCAN. TECHNIQUE: Multiplanar multisequence MRI of the Lumbar spine was performed. COMPARISON: CR XR lumbar spine complete from 09/01/2018 CR XR DEXA BONE DENSITY W/WO ALBERT from 11/01/2020 CR XR LUMBAR SPINE COMPLETE from 08/24/[address] LUMBAR SPINE RECONS from 09/20/[address] ABDOMEN PELVIS W from 09/20/2022 FINDINGS: Bones: The last intervertebral disc space is designated the L5/S1 level for the numbering purpose of this examination. The vertebral body heights are well maintained. There are prominent degenerative disc changes throughout which are greatest at L2-3 with prominent en dplate osteophytes and sclerosis. Degenerative levoscoliosis noted. The marrow signal characteristi cs are unremarkable. No abnormal enhancement within discs or vertebral bodies. Findings on x-ray an d CT consistent with degenerative changes. Cord: The conus tip ends at the T12 level. It is of normal size and signal intensity. T12-L1: Disc desiccation and loss of disc height. Schmorl's node inferior endplate of T12. Moderate left neural foraminal narrowing. No significant central canal stenosis. L1-2: Is narrowing of the disc and prominent endplate osteophytes, eccentric toward the right. Sever e right and moderate left neural foraminal narrowing. No significant central canal stenosis. L2-3: Severe loss of disc height, endplate osteophytes and skull prominent sclerosis. Moderate centr al canal stenosis. Severe bilateral neural foraminal narrowing. Mild facet degenerative changes. L3-4: Loss of disc height eccentric toward the right and prominent endplate osteophytes. Severe bila teral neural foraminal narrowing. Moderate facet degenerative changes. Mild central canal stenosis. L4-5: Mild disc bulging. Prominent facet degenerative changes. Moderate central canal stenosis. Se taco bilateral neural foraminal narrowing. L5-S1: Mild disc bulging. Small endplate osteophytes. Facet degenerative changes causing severe lef t and moderate right neural foraminal narrowing. Mild central canal stenosis. The visualized SI joints and sacrum are well maintained. Soft tissues: The paraspinal soft tissues are unremarkable. No abnormal paraspinal soft tissue enhan cement. IMPRESSION: No evidence of discitis or osteomyelitis. Multilevel severe degenerative disc changes and facet degenerative changes causing severe bilateral n eural foraminal narrowing at multiple levels greater on the right. Moderate central canal stenosis a t L2-3 and L4-5. No focal disc herniation. DATA REPOSITORY:
[2022-09-21] MEDS: Normal Saline Flush 10 ML SYR IVP (14:52)
[2022-09-21] MEDS: Gadoterate meglumine 20 ML VIAL 14 ML IVP (14:53)
== END 2022-09-21 10:11 ==
LOC: DI 09:57
PROVIDERS: PCP Student in an Organized Health Care Education/Training Program; Visit Provider Physician Assistant
DX: M47.819 Spondylosis without myelopathy or radiculopathy, site unspecified (principal); M48.061 Spinal stenosis, lumbar region without neurogenic claudication
CPT/HCPCS: 72158

== ENCOUNTER 2023-03-08 01:24 | Outpatient (CLI) | payer MEDICARE, SELFPAY ==
[2023-03-08 12:18] LABS: Anion Gap 9.1 mmol/L (3-11); BUN 18 mg/dL (7-18); CO2 27.9 mmol/L (21.0-32.0); CREATININE 0.6 mg/dL (0.55-1.02); Calcium 9.8 mg/dL (8.5-10.1); Chloride 104 mmol/L (98-107); Estimated GFR 87.36 (mL/min/1.73m2); Glucose 87 mg/dL (74-106); Potassium 3.7 mmol/L (3.5-5.1); Sodium 141 mmol/L (136-145)
== END 2023-03-08 01:25 | disposition home or self-care (01) ==
LOC: LBO 01:25
PROVIDERS: Absent Provider Student in an Organized Health Care Education/Training Program; PCP Student in an Organized Health Care Education/Training Program; Visit Provider Student in an Organized Health Care Education/Training Program
DX: F19.90 Other psychoactive substance use, unspecified, uncomplicated (principal)
CPT/HCPCS: 36415; 80048

== ENCOUNTER 2023-03-20 07:59 | Outpatient (CLI) | payer MEDICARE, SELFPAY ==
--- NOTE | 2023-03-20 06:00 | DI.RAD_ITS ---
Exam(s) XR PAIN CLINIC SACRIOILIAC 2V EXAM: XR PAIN CLINIC SACRIOILIAC 2V CLINICAL HISTORY: Dx: Sacroiliac Joint Dysfunction TECHNIQUE: 2D and realtime digital imaging was performed. CONTRAST MATERIAL: Refer to procedure report. COMPARISON: No exams were available for comparison FINDINGS: Fluoroscopy was provided for Dr. Nye during the performance of a left sacroiliac joint injection. Please refer to the procedure report for complete details. Ka,r=2.38 mGy IMPRESSION:
[2023-03-20 08:23] VITALS: BP 164/86; PULSE 82; RESP 20; TEMP 36.7; O2SAT 99
--- NOTE | 2023-03-20 09:03 | PDOC.PAIN ---
Date of service: 03/20/23 Time of Service: 09:03 Pain Managment Procedure Note Procedure Note Procedure Note: PROCEDURE NOTE LEFT INTRA-ARTICULAR SACROILIAC JOINT INJECTION Date of Service: March 20, 2023 Patient: Nhi Jones Provider: Philipp Nye DO, MPH COMMENTS: I previously evaluated the patient in the office and their symptoms in relation to the sacroiliac joint pain have remained the same. Pre-operative diagnosis: Sacroiliac joint dysfunction Post-operative diagnosis: Same Pre-procedure pain: VAS= 10/10 Nhi Jones has been referred to our [facility] for a Left intra-articular Sacroiliac joint injection. Nhi was interviewed and the medical record reviewed. There were no medical, pharmacologic, radiographic or other structural contraindications to attempting a fluoroscopically-guided, contrast-enhanced, intra-articular Sacroiliac joint injection. The risks, benefits, and potential side effects of this procedure were reviewed with the patient. Questions and concerns were addressed. After it was clear that Nhi was fully informed about the procedure, the printed consent form was signed by the patient and myself. Nhi was placed in the prone position on the fluoroscopy table and an automated blood pressure cuff, 3 lead EKG, and pulse oximeter were applied. The skin entry point for approaching the Left sacroiliac joint was identified under the most advantageous fluoroscopic view and marked. Following thorough Chlorhexadine preparation of the skin and draping with sterile surgical drapes, 2 mls of 1% lidocaine was infiltrated into the skin at the entry point and the surrounding subcutaneous tissues. Next, a 3.5 22G spinal needle was placed under fluoroscopic guidance into the Left sacroiliac joint. Intra-articular placement was confirmed by a clear arthrogram resulting from the injection of 0.25ml of Omnipaque-240. Next, 1 ml of Depo- Medrol 80 mg/ml was injected intra-articularly with an initial reproduction of a significant component of the usual pain. This was followed with 1 ml of 1% Lidocaine. The needle was then removed without difficulty. (49 ml of Omnipaque-240 was wasted). Ians vital signs were stable throughout the procedure and were as recorded in nursing records. Follow up plans and appointments were discussed with Nhi. Post procedure instructions were given as documented in nursing records. Having met discharge criteria, Nhi was discharged from the [facility]. COMMENTS: Post-procedure pain: VAS= 9/10. If the patient receives at least 50% improvement in pain and/or function for at least 3 months, this procedure can be repeated if needed. I personally performed this entire procedure. PHILIPP NYE DO, MPH ABPMR-subspecialty board certification in Pain Medicine [facility] [facility]
[2023-03-20 09:10] VITALS: BP 168/78; PULSE 75; RESP 16; O2SAT 97
[2023-03-20] MEDS: Omnipaque 240 MG/ML 50 ML BTL IJ (09:11)
[2023-03-20] MEDS: methylPREDNISolone ACETATE 80 MG/ML VIAL IJ (09:12)
== END 2023-03-20 08:00 | disposition home or self-care (01) ==
LOC: PC 08:00
PROVIDERS: PCP Student in an Organized Health Care Education/Training Program; Visit Provider Preventive Medicine Occupational Medicine
DX: M54.50 Low back pain, unspecified (principal); M46.1 Sacroiliitis, not elsewhere classified
CPT/HCPCS: 00123; 27096; 72200; J1040; Q9967

== ENCOUNTER → 2023-09-24 15:40 | Outpatient (CLI) | payer MEDICARE, SELFPAY ==
--- NOTE | 2023-09-24 13:45 | DI.RAD_ITS ---
Exam(s) XR THORACIC SPINE COMPLETE EXAM: XR THORACIC SPINE COMPLETE CLINICAL HISTORY: back pain, evaluate KYPHOSIS, STOOPED POSTURE, M54.9 M40.00 R29.3. TECHNIQUE: 2D digital imaging was performed. COMPARISON: No exams were available for comparison FINDINGS: 3 views There is scoliosis in the thoracic-lumbar spine which is most prominent in the lumbar spine where it is convex left. There is no evidence of acute compression fracture. No listhesis. Anterior osteophytes noted in the lumbar spine. Also disc space narrowing at C6-7 level. IMPRESSION: No acute osseous findings in the thoracic vertebrae. DATA REPOSITORY: RADIATION DOSE DELIVERED:
== END ==
PROVIDERS: PCP Student in an Organized Health Care Education/Training Program; Visit Provider Student in an Organized Health Care Education/Training Program
DX: M54.6 Pain in thoracic spine (principal); R29.3 Abnormal posture
CPT/HCPCS: 72072

== ENCOUNTER 2023-11-27 10:14 | Outpatient (CLI) | payer MEDICARE, SELFPAY ==
--- NOTE | 2023-11-27 06:00 | DI.RAD_ITS ---
Exam(s) XR PAIN CLINIC LUMBAR SP 2V EXAM: XR PAIN CLINIC LUMBAR SP 2V CLINICAL HISTORY: Lumbar radiculopathy TECHNIQUE: 2D and realtime digital imaging was performed. Radiologist not present. CONTRAST MATERIAL: None. COMPARISON: No exams were available for comparison FINDINGS: Fluoroscopy was provided for pain management therapy. Please refer to procedure report or details. Radiation Exposure Index: Ka,r=7.23 mGy IMPRESSION: As above. RADIATION DOSE DELIVERED:
[2023-11-27 10:26] VITALS: BP 142/83; PULSE 87; RESP 20; TEMP 36.7; O2SAT 99
[2023-11-27 11:15] VITALS: BP 157/93; PULSE 87; RESP 13; O2SAT 96
[2023-11-27] MEDS: Omnipaque 240 MG/ML 50 ML BTL IJ (11:17)
[2023-11-27] MEDS: Epidural Tray 1 EACH MC (11:17)
[2023-11-27] MEDS: methylPREDNISolone ACETATE 80 MG/ML VIAL IJ (11:18)
--- NOTE | 2023-11-27 13:39 | PDOC.PAIN_ITS ---
Date of service: 11/27/23 Time of Service: 11:11 Pain Managment Procedure Note Procedure Note Procedure Note: PROCEDURE NOTE LUMBAR EPIDURAL STEROID INJECTION Date of Service: November 27, 2023 Patient:Nhi Vazquez? Provider: Philipp Nye DO, MPH Nhi Jones has been referred to the [facility] Management Center for a lumbar epidural steroid injection. Pre-operative diagnosis: Lumbosacral Radiculopathy Post-operative diagnosis: Same Pre-Procedure Pain: VAS= 7 /10 Comments: I previously evaluated her in the office on 07/24/23 - her symptoms have not changed. Nhi was interviewed and the medical record was reviewed.? There were no medical, pharmacologic, radiographic or other structural contraindications to attempting fluoroscopically guided Lumbar epidural steroid injection.? Risks, potential side effects, indications, and potential benefits of the procedure were reviewed with Nhi.? Questions and concerns were addressed.? After it was clear that Nhi was fully informed about the procedure, the printed consent form was signed by the patient and myself.? Nhi was placed in the prone position on the fluoroscopy table and automated blood pressure cuff and pulse oximeter applied. The skin entry point for entering/approaching the epidural space for the lumbar epidural steroid injection was marked. Following thorough chlorhexadine preparation of the skin and draping and 1% lidocaine infiltration of the skin entry point and subcutaneous tissues, an 18 gauge Touhy needle was placed and advanced under fluoroscopic guidance and with loss of resistance technique into the L5-S1 epidural space. Needle tip placement and depth were aided and confirmed by fluoroscopy. There was no paresthesia or return of blood or CSF through the needle. 1 mls of Omnipaque 240 was injected with clear epidural spread confirmed with fluoroscopy. 80 mg of Depo-Medrol was? injected. This was followed by 1 ml of preservative-free normal saline to flush the steroid out of the needle. There was no unusual discomfort expressed by Nhi. The needle was withdrawn without difficulty. (49 mls of Omnipaque was wasted) Nhi was observed and was without hemodynamic, neurologic, or allergic reactions.? Fluoroscopic images were digitally archived. Nhi's vital signs were stable throughout the procedure and were as recorded in nursing records. Follow up plans and appointments were discussed with Nhi. Post procedure instruction was given as documented in nursing records and having met discharge criteria Nhi was discharged from the [facility]. COMMENTS: No apparent complications. Post-procedure pain: VAS= 1/10. Nhi to contact [facility] as needed. If at least 50% improvement in pain and/or function for at least 3 months is achieved, this procedure can be repeated. I personally performed this entire procedure. PHILIPP NYE DO, MPH ABPMR-subspecialty board certification in Pain Medicine [facility]
== END 2023-11-27 10:15 | disposition home or self-care (01) ==
LOC: PC 10:15
PROVIDERS: PCP Student in an Organized Health Care Education/Training Program; Visit Provider Preventive Medicine Occupational Medicine
DX: M54.50 Low back pain, unspecified (principal); M54.17 Radiculopathy, lumbosacral region
CPT/HCPCS: 62323; 72100; J1010; Q9967

== ENCOUNTER 2024-03-10 02:53 | Outpatient (CLI) | payer MEDICARE, SELFPAY ==
[2024-03-10 10:07] LABS: HGB 13.8 g/dL (11.2-15.7)
[2024-03-10 11:51] LABS: Iron 127 ug/dL (50-170); Total Iron Binding Capacity 328 ug/dL (250-450); Transferrin Sat 39 % (15-50)
[2024-03-10 12:05] LABS: ALT 55 U/L (14-59); AST 34 U/L (15-37); Albumin 3.7 g/dL (3.4-5.0); Alkaline Phosphatase 126 U/L (46-116); BUN 12 mg/dL (7-18); Bilirubin, Total 0.84 mg/dL (0.2-1.0); CREATININE 0.6 mg/dL (0.55-1.02); Calcium 9.9 mg/dL (8.5-10.1); Calculated LDL 129 mg/dL (<100); Chloride 108 mmol/L (98-107); Cholesterol 221 mg/dL (<200); Estimated GFR 86.82 (mL/min/1.73m2); Ferritin 116 ng/mL (8-252); Glucose 84 mg/dL (74-106); HDL Cholesterol 76 mg/dL (40-60); Potassium 3.8 mmol/L (3.5-5.1); Sodium 146 mmol/L (136-145); Total Protein 7.1 g/dL (6.4-8.2); Triglyceride 83 mg/dL (<150); Vitamin D 25 Total 32.9 ng/mL (30-100)
== END 2024-03-10 02:54 | disposition home or self-care (01) ==
LOC: LBO 02:53
PROVIDERS: Absent Provider Student in an Organized Health Care Education/Training Program; PCP Student in an Organized Health Care Education/Training Program; Referring Provider Student in an Organized Health Care Education/Training Program; Visit Provider Student in an Organized Health Care Education/Training Program
DX: K90.9 Intestinal malabsorption, unspecified (principal); I10 Essential (primary) hypertension; I73.9 Peripheral vascular disease, unspecified; M19.90 Unspecified osteoarthritis, unspecified site; R60.9 Edema, unspecified; Z13.220 Encounter for screening for lipoid disorders; Z86.2 Personal history of diseases of the blood and blood-forming organs and certain disorders involving the immune mechanism; M54.9 Dorsalgia, unspecified; R53.1 Weakness; R29.3 Abnormal posture; Z97.8 Presence of other specified devices; R53.83 Other fatigue
CPT/HCPCS: 36415; 80053; 80061; 82306; 82728; 83540; 83550; 85018

== ENCOUNTER 2024-09-15 00:23 | Outpatient (CLI) | payer MEDICARE, SELFPAY ==
--- NOTE | 2024-09-15 07:30 | DI.RAD_ITS ---
Exam(s) XR FOOT LT COMPLETE EXAM: XR FOOT LT COMPLETE CLINICAL HISTORY: Left foot pain,m79.672. TECHNIQUE: 2D digital imaging was performed. Three views. COMPARISON: No exams were available for comparison FINDINGS: BONES: No acute fracture is present. No bony destructive lesion is seen. The bones appear osteopeni c. Screws in the distal fibula. Tiny plantar calcaneal spur. JOINTS: No dislocation present. Mild degenerative changes at the 1st MTP joint and talonavicular mallika int. No hallux valgus. SOFT TISSUE: Vascular calcifications. IMPRESSION: Mild degenerative changes. DATA REPOSITORY: RADIATION DOSE DELIVERED:
== END 2024-09-15 00:43 ==
LOC: DI 00:24
PROVIDERS: PCP Nurse Practitioner; Visit Provider Podiatrist
DX: M79.672 Pain in left foot (principal)
CPT/HCPCS: 73630

== ENCOUNTER 2024-11-06 12:57 | Day surgery (SDC) | payer MEDICARE, SELFPAY ==
--- NOTE | 2024-11-06 06:49 | ANES.PREOP_ITS ---
General Info Date of Service Date Performed: 11/06/24 Height: 5 ft 3 in Weight: 63.049 kg Body Mass Index (BMI): 24.6 Surgical Procedure: Operation Date: 11/06/24 13:40 Proposed Procedure Side Surgeon p Cataract Extraction with IOL Implant Right Louis Anderson MD Meds Allergies and Home Medications Allergies Allergy/AdvReac Type Severity Reaction Status Date / Time Latex, Natural Rubber Allergy Severe rash Verified 11/06/24 13:11 Home Medication ?Medication ?Instructions ?Recorded acetaminophen 500 mg tablet 1,000 mg PO PRN 10/10/12 (Tylenol Extra Strength) aspirin 325 mg tablet 650 mg PO DAILY PRN 10/10/12 inhalational spacing device #1 ea 03/01/20 (Aerovent Plus spacer) omega 3,6,9 combination no.7 92 mg 92 mg PO DAILY 01/12 07/03 (43 mg-22 [id number]) chew tablet calcium carbonate (Tums Ultra) 400 mg PO DAILY PRN albuterol sulfate 90 mcg/actuation 1 puff inhalation Q ID PRN 09/27/21 aerosol inhaler shortness of breath or wheez ing #1 inh magnesium oxide 400 mg PO DAILY 11/08/21 mecobalamin (vitamin B12) 500 mcg 500 mcg PO DAILY chewable tablet amitriptyline 25 mg tablet 25 mg PO BID PRN Insomnia, 02/26/24 fibromyalgia #180 tab-caps celecoxib 200 mg capsule 200 mg PO DAILY #20 caps Back Brace #1 ea 03/17/24 valsartan 80 mg tablet 80 mg PO DAILY #90 tabs 10/11 02/04 Current Visit Medications: Current Medications Generic Name Dose Route Start Last Admin Trade Name Freq PRN Reason Stop Dose Admin Acetaminophen 1,000 mg 11/06/24 06:00 Acetaminophen 500 Mg Tab PO 12/06/24 05:59 Q4H PRN PRN Balanced Salt Solution 500 ml 11/06/24 06:00 Balanced Salt Soln.-Plus 500 Ml Bag OP 12/06/24 05:59 DIRECTED CLAUDIA Miscellaneous Medication 0 ml 11/06/24 06:00 Prednisolone 1%, Moxifloxacin 0.5%, Bromfenac 0.09% 5.6ml Btl OD 12/06/24 05:59 DIRECTED CLAUDIA Miscellaneous Medication 0 ml 11/06/24 06:00 Tropicam./Phenyleph. (1/2.5%) 5 Ml Btl OD 12/06/24 05:59 DIRECTED [facility]ENDING [facility] TO [facility] Tetracaine HCl 0 ml 11/06/24 06:00 Tetracaine 0.5% 4 Ml Btl OD 12/06/24 05:59 DIRECTED PENDING [facility] TO [facility] PFSH Active Problems Active Problems: Problem Status Onset Code Cortical age-related cataract, right eye Acute H25.011 Nuclear age-related cataract, right eye Acute H25.11 Elevated alkaline phosphatase level Acute R74.8 Braces as ambulation aid Acute Z97.8 Back pain due to inflammatory process Acute M54.89 Stooped posture Acute R29.3 Lumbar spinal stenosis Acute M48.061 Foot pain, bilateral Acute M79.671, M79.672 Ankle arthralgia Acute M25.579 Lumbosacral radiculopathy at S1 Acute M54.17 Sacroiliac joint dysfunction of left side Acute M53.3 Edema Acute R60.9 Actinic keratoses Acute L57.0 Rash and other nonspecific skin eruption Acute R21 Peripheral vascular disease Chronic I73.9 Muscle weakness Acute M62.81 Dependent for meal preparation Acute Z74.1 Pain aggravated by standing Acute R52 Ambulates with cane Acute Z99.89 Balance problem Acute R26.89 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 Lugo note, f/u visit bx came back showing BCCA presternal chest margins clear.HE 06/25/24 DR Lugo, Bx from Presternal Chest Cognitive decline SUre, but actually pretty with it per my experience, Headache (09/11/11) Amitriptyline Rx (per Hx, 2018, for H/A, Fibro) Dizziness Acute pain of left shoulder Basal cell adenocarcinoma Aphthous ulcer of mouth Tick bite Skin rash Right shoulder strain BPV (benign positional vertigo) Fibromyalgia (09/11/11) amitriptyline Rx Surgical History Surgical History History of ankle surgery History of tonsillectomy lap uteroscaral ligament suspension,repair and sling (06/01/13) [facility], Dr. Jose Ruiz Hysterectomy Tobacco Smoking/Tobacco Use Status: Never Passive smoking exposure: No Alcohol Alcohol Intake: current Alcohol intake frequency: 0-2 drinks per day Alcohol type: wine and hard liquor Substance Use Substance use: Never Substance use type: does not use Vital Signs and Lab Results Vital Signs Most Recent Vital Signs in EMR: Temp Pulse Resp BP Pulse Ox 36.3 C L 77 16 175/78 H 95 11/06/24 13:25 11/06/24 13:25 11/06/24 13:25 11/06/24 13:25 11/06/24 13:25 Anesthesia Assessment and Plan Anesthesia History Personal History: No History of Anesthesia Complications Family History: No Family History of Anesthesia Complications Exercise Tolerance Exercise Tolerance: Metabolic Equivalents<4 Cardiac & Pulmonary Exam Cardiac Exam: Normal S1/S2 Heart Sounds Pulmonary Exam: Clear Bilateral Breath Sounds Implantable Cardiac Device Does patient have a Pacemaker or an ICD?: No Airway Exam Known Difficult Airway: No Mallampati Class: 3 Mouth Opening: Narrow (< 3cm) Thyromental Distance: Less than 3 cm Neck Range of Motion: Full ROM and Limited ROM Neck Circumference: Normal Teeth Condition: Normal Dentition ASA Classification ASA Score: ASA 3 Emergency Case?: No NPO Status NPO Status: NPO Clears >2 hours, Solids >8 hours Anesthesia Plan Resuscitation Status: Full Code Anesthesia Technique: MAC Anesthesia Airway Planned: Natural Airway Monitors Used: Standard Monitors Preoperative Comments:: 89 yo female for cataract removal. no MKO Sig PMHx: HTN, LBP, PVD, anxiety, BPV, fibromyalgia. Stress: LVEF 86%, no WMA. ECG: sinus, LBBB.
[2024-11-06 13:25] VITALS: BP 175/78; PULSE 77; RESP 16; TEMP 36.3; O2SAT 95
[2024-11-06 13:30] VITALS: BMI 24.6
[2024-11-06] MEDS: Tropicam./Phenyleph. (1/2.5%) 5 ML BTL OD ×3 (13:30→13:40)
[2024-11-06 13:37] VITALS: BP 152/75
[2024-11-06] MEDS: Povidone-Iodine Ophth 30 ML BTL (14:22)
[2024-11-06] MEDS: Tetracaine 0.5% 4 ML BTL OD (14:24)
[2024-11-06] MEDS: Duovisc Viscoelastic System EACH 1 EACH (14:29)
[2024-11-06] MEDS: Phenylephrine/Lidocaine (15/10) MG/ML 1 ML VIAL (14:29)
[2024-11-06] MEDS: Lidocaine 1% Pres-Free 5 ML VIAL (14:29)
[2024-11-06] MEDS: Balanced Salt Soln.-PLUS 500 ML BAG OP (14:30)
[2024-11-06] MEDS: Moxifloxacin-PF 1 MG/ML VIAL (14:47)
[2024-11-06] MEDS: Prednisolone 1%, Moxifloxacin 0.5%, Bromfenac 0.09% 5.6ML BTL OD (14:48)
[2024-11-06 14:54] VITALS: BP 138/89; PULSE 58; RESP 16; TEMP 36.6; O2SAT 98
--- NOTE | 2024-11-06 14:58 | ROE_ITS ---
Operative Note Operative Note PRE-OP DIAGNOSIS: Nuclear/cortical cataract, right eye POST-OP DIAGNOSIS: same PROCEDURE: Cataract extraction using phacoemulsification with intraocular lens implant, right eye SURGEON: Louis Anderson ANESTHESIA TYPE: Local By Surgeon and MAC Refer to Anesthesia Record ESTIMATED BLOOD LOSS: 0 PATHOLOGY: none sent COMPLICATIONS: None Patient was transported to: same day Patient's condition: stable Implants: Sav Clareon [id number] Indications: Progressive decreased vision due to cataract, right eye Procedure Description: CATARACT SURGERY OPERATIVE REPORT PREOPERATIVE DIAGNOSIS: Nuclear/cortical cataract, right eye POSTOPERATIVE DIAGNOSIS: Same OPERATION: Cataract extraction using phacoemulsification with posterior chamber intraocular lens implant, right eye. IOL: IOL Supervisor Channel Process/Model: Sav Clareon [id number] IOL Power: + 24.0 diopters IOL Serial Number: [id number] Optic Diameter: 6.0mm Haptic/Overall Diameter: 13.0mm PHACO INFO: Sav Centurion Vision System with OZil and Active Fluidics Cumulative Dispersed Energy (CDE): 9.25 seconds SURGEON: Louis Anderson MD, LINO ANESTHESIA: Monitored Anesthesia Care (MAC), with local sub-tenon's anesthetic infiltration COMPLICATIONS: None SPECIMENS: None INDICATIONS FOR PROCEDURE: The patient is an 89-year-old lady with history of diminished visual acuity in her right eye secondary to the development of nuclear/cortical cataract. She is significantly symptomatic that she desires cataract surgery in attempt to improve and maximize her vision. The option of cataract surgery was offered to the patient and she wished to proceed. See office notes for detailed information. PROCEDURE: The correct surgical eye was identified and marked as the right eye and the pupil was dilated in the preoperative area using mydriatics and cycloplegics. The dilated pupil size was 7.0 mm. The patient elected to proceed without oral sedation. The patient was brought to the operating room where cardiopulmonary monitoring was instituted and surgical time-out was performed, confirming the correct operative eye and IOL power. Topical anesthesia was administered and ophthalmic povidone-iodine 5% was instilled into the conjunctival fornices. The makayla-ocular area was prepped with Betadine 10% solution and draped in the usual sterile fashion for intraocular surgery, including an aperture drape. A Tegaderm transparent film dressing was cut in half and used to cover the lashes and lid margins. Care was taken to sequester the lashes and lid margins under the Tegaderm dressing. A lid speculum was placed between the lids of the operative eye and the Sav LuxOR Revalia operating microscope was maneuvered into position. Carmen scissors were then used to make a conjunctival buttonhole approximately 6mm posterior to the limbus in the inferonasal quadrant. Blunt dissection was carried out to expose bare sclera, and a blunt-tipped sub-tenon?s anesthesia cannula was introduced and passed posteriorly along the globe where non- preserved plain lidocaine was injected into posterior sub-Tenon?s space. A sideport knife was used to make a paracentesis port. Intraocular phenylephrine/lidocaine was injected into the anterior chamber. The anterior chamber was then filled with viscoelastic. A keratome knife was used to construct a two--plane clear corneal tunnel extending 2.0mm into clear cornea. A flap was raised on the anterior capsule and capsulorhexis forceps were used to complete a continuous curvilinear capsulorhexis of 5.5 mm. Balanced salt solution was then used to perform cortical cleaving hydrodissection and nuclear hydrodelineation until the lens could be freely rotated within the capsular bag. The lens nucleus was then disassembled and removed within the capsular bag and iris plane using phacoemulsification. Residual cortical material was removed using the I/A handpiece. The posterior capsule was carefully polished to remove as much residual lens epithelial cells as safely possible. The capsular bag was then inflated and the anterior chamber deepened with cohesive viscoelastic. The lens implant described above was inserted into the capsular bag using the Sav Autonome Injector. A Kuglen hook was used to dial the IOL into position. Residual viscoelastic was then removed first from posterior to the IOL, then from the anterior chamber using the I/A handpiece. The lens implant was noted to center nicely within the capsular bag. The incisions were stromally hydrated, and the anterior chamber was reformed using BSS. Then 0.5cc of moxifloxacin 1.0mg/ml were injected into the capsular bag and anterior chamber. The incisions were checked with a Weck spear and found to be secure. Several drops of ophthalmic povidone-iodine 5% were then applied to the eye followed by two drops of combination steroid/NSAID/antibiotic solution. The drapes were removed and a clear plastic protective eye shield was placed over the eye. The patient was then returned to Same Day Surgery in stable condition. Date of Procedure: 11/06/24
--- NOTE | 2024-11-06 14:58 | W.PM.DSUDISC ---
Date of service: 11/06/24 Discharge Plan Disposition Patient Disposition: Home Discharge Details Attending Provider: Louis Anderson Primary Care Provider: Deidre Gold Home Meds and New Rx's Prescriptions: No Action omega 3,6,9 combination no.7 92 mg (43 mg-22 [id number]) tablet,chewable 92 mg PO DAILY (DME) Aerovent Plus Spacer See Rx Instructions .ROUTE .MEDSUPPLY Qty: 1 0RF Rx Instructions: As directed; use with albuterol MDI calcium carbonate [Tums Ultra] 400 mg calcium (1,000 mg) tablet,chewable 400 mg PO DAILY PRN albuterol sulfate 90 mcg/actuation HFA aerosol inhaler 1 puff inhalation QID PRN (Reason: shortness of breath or wheezing) Qty: 1 2RF Rx Instructions: 1-2 puffs up to 4 times a day as needed for shortness of breath magnesium oxide 400 mg magnesium capsule 400 mg PO DAILY mecobalamin (vitamin B12) 500 mcg tablet,chewable 500 mcg PO DAILY Patient Comments: Taking 1-4 tablets daily; unsure of strength of medication amitriptyline 25 mg tablet 25 mg PO BID PRN (Reason: Insomnia, fibromyalgia) Qty: 180 3RF Rx Instructions: One every night. One in the AM if needed for fibromyalgia. celecoxib 200 mg capsule 200 mg PO DAILY Qty: 20 1RF Rx Instructions: Trial daily for inflammation (DME) Back Brace See Rx Instructions .Route .MEDSUPPLY Qty: 1 0RF Rx Instructions: Back Brace, acute need, discussed with PT who recommended a bioskin lumbosacral stabilization brace will work valsartan 80 mg tablet 80 mg PO DAILY Qty: 90 3RF Rx Instructions: Dose decrease 10/29/2024; goal BP <140/90; >100/60 aspirin 325 MG tablet 650 mg PO DAILY PRN Rx Instructions: 2 tabs acetaminophen [Tylenol Extra Strength] 500 MG tablet 1,000 mg PO PRN Discharge Instructions Stand Alone Forms: [facility] Post-Op Cataract, Yousif Payneey ([facility]) Discharge Orders Discharge Orders: Discharge Order (Routine); Ordered 11/06/24 Ordered By: Louis Anderson DS: Diagnosis Discharge Diagnosis (1) Cortical age-related cataract, right eye: Status: Resolved (2) Nuclear age-related cataract, right eye: Status: Resolved
--- NOTE | 2024-11-06 15:07 | W.ANESPOSTOP ---
Postoperative Evaluation Date, Time and Location Date Performed: 11/06/24 Time Performed: 15:07 Patient Location: Day Surgery Unit Vital Signs Most Recent Imported Vital Signs: Most Recent Vital Signs Temp Pulse Resp BP Pulse Ox 36.3 C L 77 16 152/75 H 95 11/06/24 13:25 11/06/24 13:25 11/06/24 13:25 11/06/24 13:37 11/06/24 13:25 Pain Score Most Recent Pain Score: Most Recent Pain Score Pain Level 0 11/06/24 13:25 Assessment Mental Status: Awake (Alert & Oriented to Patient Baseline) Airway and Respiratory Function: Patent airway with normal (patient baseline) respiratory exam Cardiovascular Function: Hemodynamically Stable Hydration Status: Adequately Hydrated Nausea & Vomiting: No Nausea or Vomiting Pain: Pt. Denies Any Pain Peripheral Nerve Block: Patient did not receive a nerve block
== END 2024-11-06 15:28 | disposition home or self-care (01) ==
LOC: SUR 12:57
PROVIDERS: PCP Nurse Practitioner; Visit Provider Ophthalmology
PROC: (CPT 66984; principal; 2024-11-06 13:30)
DX: H25.011 Cortical age-related cataract, right eye (principal); H25.11 Age-related nuclear cataract, right eye; I10 Essential (primary) hypertension
CPT/HCPCS: 66984; 00123; V2632; J2003

== ENCOUNTER 2024-11-20 09:15 | Day surgery (SDC) | payer MEDICARE, SELFPAY ==
[2024-11-20 09:58] VITALS: BP 141/78; PULSE 73; RESP 16; TEMP 36.6; O2SAT 99
[2024-11-20] MEDS: Tropicam./Phenyleph. (1/2.5%) 5 ML BTL OS ×2 (10:06→10:14)
--- NOTE | 2024-11-20 10:38 | ANES.PREOP_ITS ---
General Info Date of Service Date Performed: 11/20/24 Height: 5 ft 3 in Weight: 62 kg Body Mass Index (BMI): 24.2 Surgical Procedure: Operation Date: 11/20/24 11:40 Proposed Procedure Side Surgeon p Cataract Extraction with IOL Implant Left Louis Anderson MD Actual Procedure Side Surgeon p Cataract Extraction with IOL Implant Left Louis Anderson MD Pre-Op Diagnosis Post-Op Diagnosis LEFT CATARACT LEFT CATARACT Meds Allergies and Home Medications Allergies Allergy/AdvReac Type Severity Reaction Status Date / Time Latex, Natural Rubber Allergy Severe rash Verified 11/20/24 10:02 Home Medication ?Medication ?Instructions ?Recorded acetaminophen 500 mg tablet 1,000 mg PO PRN 10/10/12 (Tylenol Extra Strength) aspirin 325 mg tablet 650 mg PO DAILY PRN 10/10/12 inhalational spacing device #1 ea 03/01/20 (Aerovent Plus spacer) omega 3,6,9 combination no.7 92 mg 92 mg PO DAILY 01/12 07/03 (43 mg-22 [id number]) chew tablet calcium carbonate (Tums Ultra) 400 mg PO DAILY PRN albuterol sulfate 90 mcg/actuation 1 puff inhalation Q ID PRN 09/27/21 aerosol inhaler shortness of breath or wheez ing #1 inh magnesium oxide 400 mg PO DAILY 11/08/21 mecobalamin (vitamin B12) 500 mcg 500 mcg PO DAILY chewable tablet amitriptyline 25 mg tablet 25 mg PO BID PRN Insomnia, 02/26/24 fibromyalgia #180 tab-caps celecoxib 200 mg capsule 200 mg PO DAILY #20 caps Back Brace #1 ea 03/17/24 valsartan 80 mg tablet 80 mg PO DAILY #90 tabs 10/11 02/04 Current Visit Medications: Current Medications Generic Name Dose Route Start Last Admin Trade Name Freq PRN Reason Stop Dose Admin Acetaminophen 1,000 mg 11/20/24 06:00 Acetaminophen 500 Mg Tab PO 12/20/24 05:59 Q4H PRN PRN Balanced Salt Solution 500 ml 11/20/24 06:00 Balanced Salt Soln.-Plus 500 Ml Bag OP 12/20/24 05:59 DIRECTED CLAUDIA Miscellaneous Medication 0 ml 11/20/24 06:00 Prednisolone 1%, Moxifloxacin 0.5%, Bromfenac 0.09% 5.6ml Btl OS 12/20/24 05:59 DIRECTED [facility] Miscellaneous Medication 0 ml 11/20/24 06:00 11/20/24 10:14 Tropicam./Phenyleph. (1/2.5%) 5 Ml Btl OS 12/20/24 05:59 1 drp DIRECTED [facility] Administration Tetracaine HCl 0 ml 11/20/24 06:00 Tetracaine 0.5% 4 Ml Btl OS 12/20/24 05:59 DIRECTED [facility] PFSH Active Problems Active Problems: Problem Status Onset Code Cortical age-related cataract, left eye Acute H25.012 Nuclear age-related cataract, left eye Acute H25.12 Cortical age-related cataract, right eye Resolved H25.011 Nuclear age-related cataract, right eye Resolved H25.11 Elevated alkaline phosphatase level Acute R74.8 Braces as ambulation aid Acute Z97.8 Back pain due to inflammatory process Acute M54.89 Stooped posture Acute R29.3 Lumbar spinal stenosis Acute M48.061 Foot pain, bilateral Acute M79.671, M79.672 Ankle arthralgia Acute M25.579 Lumbosacral radiculopathy at S1 Acute M54.17 Sacroiliac joint dysfunction of left side Acute M53.3 Edema Acute R60.9 Actinic keratoses Acute L57.0 Rash and other nonspecific skin eruption Acute R21 Peripheral vascular disease Chronic I73.9 Muscle weakness Acute M62.81 Dependent for meal preparation Acute Z74.1 Pain aggravated by standing Acute R52 Ambulates with cane Acute Z99.89 Balance problem Acute R26.89 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 Lugo note, f/u visit bx came back showing BCCA presternal chest margins clear.HE 06/25/24 DR Lugo, Bx from Presternal Chest Cognitive decline SUre, but actually pretty with it per my experience, Headache (09/11/11) Amitriptyline Rx (per Hx, 2018, for H/A, Fibro) Dizziness Acute pain of left shoulder Basal cell adenocarcinoma Aphthous ulcer of mouth Tick bite Skin rash Right shoulder strain BPV (benign positional vertigo) Fibromyalgia (09/11/11) amitriptyline Rx Surgical History Surgical History History of ankle surgery History of tonsillectomy lap uteroscaral ligament suspension,repair and sling (06/01/13) [facility], Dr. Garcia Haninessa Hysterectomy Tobacco Smoking/Tobacco Use Status: Never Passive smoking exposure: No Alcohol Alcohol Intake: current Alcohol intake frequency: 0-2 drinks per day Alcohol type: wine and hard liquor Substance Use Substance use: Never Substance use type: does not use Vital Signs and Lab Results Vital Signs Most Recent Vital Signs in EMR: Most Recent Vital Signs Temp Pulse Resp BP Pulse Ox 36.6 C 73 16 141/78 H 99 11/20/24 09:58 11/20/24 09:58 11/20/24 09:58 11/20/24 09:58 11/20/24 09:58 Anesthesia Assessment and Plan Anesthesia History Personal History: No History of Anesthesia Complications Family History: No Family History of Anesthesia Complications Exercise Tolerance Exercise Tolerance: Metabolic Equivalents<4 Pertinent Negatives Pertinent Negatives: No Symptoms of GERD Cardiac & Pulmonary Exam Cardiac Exam: Normal S1/S2 Heart Sounds Pulmonary Exam: Clear Bilateral Breath Sounds Implantable Cardiac Device Does patient have a Pacemaker or an ICD?: No Airway Exam Known Difficult Airway: No Mallampati Class: 3 Mouth Opening: Narrow (< 3cm) Thyromental Distance: Less than 3 cm Neck Range of Motion: Full ROM and Limited ROM Neck Circumference: Normal Teeth Condition: Normal Dentition ASA Classification ASA Score: ASA 3 Emergency Case?: No NPO Status NPO Status: NPO Clears >2 hours, Solids >8 hours Anesthesia Plan Resuscitation Status: Full Code Anesthesia Technique: MAC Anesthesia Airway Planned: Natural Airway Monitors Used: Standard Monitors
[2024-11-20 10:39] VITALS: BMI 24.2
[2024-11-20] MEDS: Moxifloxacin-PF 1 MG/ML VIAL (11:29)
[2024-11-20] MEDS: Lidocaine 1% Pres-Free 5 ML VIAL (11:29)
[2024-11-20] MEDS: Phenylephrine/Lidocaine (15/10) MG/ML 1 ML VIAL (11:30)
[2024-11-20] MEDS: Duovisc Viscoelastic System EACH 1 EACH (11:31)
[2024-11-20] MEDS: Povidone-Iodine Ophth 30 ML BTL (11:31)
[2024-11-20] MEDS: Balanced Salt Soln.-PLUS 500 ML BAG OP (11:31)
[2024-11-20] MEDS: Tetracaine 0.5% 4 ML BTL OS (11:32)
[2024-11-20] MEDS: Prednisolone 1%, Moxifloxacin 0.5%, Bromfenac 0.09% 5.6ML BTL OS (11:32)
--- NOTE | 2024-11-20 11:47 | W.PM.DSUDISC ---
Date of service: 11/20/24 Discharge Plan Disposition Patient Disposition: Home Discharge Details Attending Provider: Louis Anderson Primary Care Provider: Deidre Gold Home Meds and New Rx's Prescriptions: No Action omega 3,6,9 combination no.7 92 mg (43 mg-22 [id number]) tablet,chewable 92 mg PO DAILY (DME) Aerovent Plus Spacer See Rx Instructions .ROUTE .MEDSUPPLY Qty: 1 0RF Rx Instructions: As directed; use with albuterol MDI calcium carbonate [Tums Ultra] 400 mg calcium (1,000 mg) tablet,chewable 400 mg PO DAILY PRN albuterol sulfate 90 mcg/actuation HFA aerosol inhaler 1 puff inhalation QID PRN (Reason: shortness of breath or wheezing) Qty: 1 2RF Rx Instructions: 1-2 puffs up to 4 times a day as needed for shortness of breath magnesium oxide 400 mg magnesium capsule 400 mg PO DAILY mecobalamin (vitamin B12) 500 mcg tablet,chewable 500 mcg PO DAILY Patient Comments: Taking 1-4 tablets daily; unsure of strength of medication amitriptyline 25 mg tablet 25 mg PO BID PRN (Reason: Insomnia, fibromyalgia) Qty: 180 3RF Rx Instructions: One every night. One in the AM if needed for fibromyalgia. celecoxib 200 mg capsule 200 mg PO DAILY Qty: 20 1RF Rx Instructions: Trial daily for inflammation (DME) Back Brace See Rx Instructions .Route .MEDSUPPLY Qty: 1 0RF Rx Instructions: Back Brace, acute need, discussed with PT who recommended a bioskin lumbosacral stabilization brace will work valsartan 80 mg tablet 80 mg PO DAILY Qty: 90 3RF Rx Instructions: Dose decrease 10/29/2024; goal BP <140/90; >100/60 aspirin 325 MG tablet 650 mg PO DAILY PRN Rx Instructions: 2 tabs acetaminophen [Tylenol Extra Strength] 500 MG tablet 1,000 mg PO PRN Discharge Instructions Stand Alone Forms: [facility] Post-Op Cataract, Yousif Reno ([facility]) Discharge Orders Discharge Orders: Discharge Order (Routine); Ordered 11/20/24 Ordered By: Louis Anderson DS: Diagnosis Discharge Diagnosis (1) Cortical age-related cataract, left eye: Status: Resolved (2) Nuclear age-related cataract, left eye: Status: Suspected
--- NOTE | 2024-11-20 11:48 | ROE_ITS ---
Operative Note Operative Note PRE-OP DIAGNOSIS: Nuclear/cortical cataract, left eye POST-OP DIAGNOSIS: same PROCEDURE: Cataract extraction using phacoemulsification with intraocular lens implant, left eye SURGEON: Louis Anderson ANESTHESIA TYPE: Local By Surgeon and MAC Refer to Anesthesia Record PATHOLOGY: none sent COMPLICATIONS: None Patient was transported to: same day Patient's condition: stable Implants: Sav Clareon [id number] Indications: Progressive decreased vision due to cataract, left eye Procedure Description: CATARACT SURGERY OPERATIVE REPORT PREOPERATIVE DIAGNOSIS: Nuclear/cortical cataract, left eye POSTOPERATIVE DIAGNOSIS: Same OPERATION: Cataract extraction using phacoemulsification with posterior chamber intraocular lens implant, left eye. IOL: IOL Bisque Kiln Placer/Model: Sav Clareon [id number] IOL Power: + 24.0 diopters IOL Serial Number: [id number] Optic Diameter: 6.0mm Haptic/Overall Diameter: 13.0mm PHACO INFO: Sav Centurion Vision System with OZil and Active Fluidics Cumulative Dispersed Energy (CDE): 8.46 seconds SURGEON: Louis Anderson MD, LINO ANESTHESIA: Monitored Anesthesia Care (MAC), with local sub-tenon's anesthetic infiltration COMPLICATIONS: None SPECIMENS: None INDICATIONS FOR PROCEDURE: The patient is an 89-year-old lady with history of diminished visual acuity in both eyes secondary to the development of bilateral nuclear/cortical cataract. She is significantly symptomatic that she desires cataract surgery in attempt to improve and maximize her vision. She has already undergone cataract surgery in the right eye and is doing well postoperatively. She now presents for cataract surgery in the left eye. See office notes for detailed information. PROCEDURE: The correct surgical eye was identified and marked as the left eye and the pupil was dilated in the preoperative area using mydriatics and cycloplegics. The dilated pupil size was 7.0 mm. The patient elected to proceed without oral sedation. The patient was brought to the operating room where cardiopulmonary monitoring was instituted and surgical time-out was performed, confirming the correct operative eye and IOL power. Topical anesthesia was administered and ophthalmic povidone-iodine 5% was instilled into the conjunctival fornices. The makayla-ocular area was prepped with Betadine 10% solution and draped in the usual sterile fashion for intraocular surgery, including an aperture drape. A Tegaderm transparent film dressing was cut in half and used to cover the lashes and lid margins. Care was taken to sequester the lashes and lid margins under the Tegaderm dressing. A lid speculum was placed between the lids of the operative eye and the Sav LuxOR Revalia operating microscope was maneuvered into position. Carmen scissors were then used to make a conjunctival buttonhole approximately 6mm posterior to the limbus in the inferonasal quadrant. Blunt dissection was carried out to expose bare sclera, and a blunt-tipped sub-tenon?s anesthesia cannula was introduced and passed posteriorly along the globe where non- preserved plain lidocaine was injected into posterior sub-Tenon?s space. A sideport knife was used to make a paracentesis port. Intraocular phenylephrine/lidocaine was injected into the anterior chamber. The anterior chamber was then filled with viscoelastic. A keratome knife was used construct a two-plane clear corneal tunnel extending 2.0mm into clear cornea. A flap was raised on the anterior capsule and capsulorhexis forceps were used to complete a continuous curvilinear capsulorhexis of 5.0 mm. Mild to moderate generalized neural laxity was noted. The capsule was noted to be quite thin. Balanced salt solution was then used to perform cortical cleaving hydrodissection and nuclear hydrodelineation until the lens could be freely rotated within the capsular bag. The lens nucleus was then disassembled and removed within the capsular bag and iris plane using phacoemulsification. Residual cortical material was removed using the irrigation/aspiration handpiece. The posterior capsule was carefully polished to remove as much residual lens epithelial cells as safely possible. The capsular bag was then inflated and the anterior chamber deepened with viscoelastic. The lens implant described above was inserted into the capsular bag using the Sav Autonome Injector. A Kuglen hook was used to dial the IOL into position. Residual viscoelastic was then removed first from posterior to the IOL, then from the anterior chamber using the I/A handpiece. The lens implant was noted to center nicely within the capsular bag. The incisions were stromally hydrated, and the anterior chamber was reformed using BSS. Then 0.5cc of moxifloxacin 1.0mg/ml were injected into the capsular bag and anterior chamber. The incisions were checked with a Weck spear and found to be secure. Several drops of ophthalmic povidone-iodine 5% were then applied to the eye followed by two drops of combination steroid/NSAID/antibiotic solution. The drapes were removed and a clear plastic protective eye shield was placed over the eye. The patient was then returned to Same Day Surgery in stable condition. Date of Procedure: 11/20/24
[2024-11-20 11:50] VITALS: BP 148/66; PULSE 66; RESP 16; TEMP 36.5; O2SAT 99
[2024-11-20 12:27] VITALS: BP 150/82; PULSE 85; RESP 18; TEMP 36.4; O2SAT 99
--- NOTE | 2024-11-20 12:32 | W.ANESPOSTOP ---
Postoperative Evaluation Date, Time and Location Date Performed: 11/20/24 Time Performed: 12:32 Patient Location: Day Surgery Unit Vital Signs Most Recent Imported Vital Signs: Most Recent Vital Signs Temp Pulse Resp BP Pulse Ox 36.5 C 66 16 148/66 H 99 11/20/24 11:50 11/20/24 11:50 11/20/24 11:50 11/20/24 11:50 11/20/24 11:50 Pain Score Most Recent Pain Score: Most Recent Pain Score Pain Level 0 11/20/24 09:58 Assessment Mental Status: Awake (Alert & Oriented to Patient Baseline) Airway and Respiratory Function: Patent airway with normal (patient baseline) respiratory exam Cardiovascular Function: Hemodynamically Stable Hydration Status: Adequately Hydrated Nausea & Vomiting: No Nausea or Vomiting Pain: Pt. Denies Any Pain Peripheral Nerve Block: Patient did not receive a nerve block
== END 2024-11-20 12:34 | disposition home or self-care (01) ==
LOC: SUR 09:15
PROVIDERS: PCP Nurse Practitioner; Visit Provider Ophthalmology
PROC: (CPT 66984; principal; 2024-11-20 11:30)
DX: H25.012 Cortical age-related cataract, left eye (principal); H25.12 Age-related nuclear cataract, left eye; Z98.41 Cataract extraction status, right eye
CPT/HCPCS: 66984; 00123; V2632; J2003

== ENCOUNTER 2025-01-06 14:40 | Outpatient (CLI) | payer MEDICARE, SELFPAY ==
--- NOTE | 2025-01-06 15:09 | DI.RAD_ITS ---
Exam(s) XR THORACIC SPINE COMPLETE EXAM: XR THORACIC SPINE COMPLETE CLINICAL HISTORY: Mid-back pain and osteoporotic - comp fx?. TECHNIQUE: 2D digital imaging was performed. COMPARISON: No exams were available for comparison FINDINGS: 3 views There is age-related osteopenia but no obvious compression fractures seen in the thoracic vertebral bodies and no abnormal widening of the paraspinal lines. There is a mild scoliosis convex right. No obvious osseous lesions. 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 IMPRESSION: Degenerative changes. No obvious fractures evident in the thoracic vertebral bodies. Mild scoliosis convex right DATA REPOSITORY: RADIATION DOSE DELIVERED:
== END 2025-01-06 15:00 ==
LOC: DI 14:41
PROVIDERS: PCP Nurse Practitioner; Visit Provider Preventive Medicine Occupational Medicine
DX: M54.6 Pain in thoracic spine (principal)
CPT/HCPCS: 72072

== ENCOUNTER 2025-01-18 09:46 | Outpatient (CLI) | payer MEDICARE, SELFPAY ==
--- NOTE | 2025-01-18 10:41 | DI.RAD_ITS ---
Exam(s) XR THORACIC SPINE COMPLETE EXAM: XR THORACIC SPINE COMPLETE CLINICAL HISTORY: Mid-back pain and osteoporotic,? comp fx,m54.6. TECHNIQUE: 2D digital imaging was performed. COMPARISON: CR XR THORACIC SPINE COMPLETE from 01/06/2025 FINDINGS: 3 views No evidence of acute fracture or listhesis of the thoracic vertebrae. Scoliosis in the lower thoracic lumbar again noted, appearing slightly more so than previous. No osseous lesions. Advanced disc space narrowing at T12-L1 and below noted. Moderate size hiatal hernia noted. IMPRESSION: Degenerative scoliosis. Appears slightly increased when compared to 01/06/2025 images. DATA REPOSITORY: RADIATION DOSE DELIVERED:
== END 2025-01-18 10:06 ==
PROVIDERS: Visit Provider Preventive Medicine Occupational Medicine
DX: M41.24 Other idiopathic scoliosis, thoracic region (principal)
CPT/HCPCS: 72072

== ENCOUNTER → 2025-04-16 00:26 | Outpatient (CLI) | payer MEDICARE, SELFPAY ==
--- NOTE | 2025-04-16 07:04 | DI.CT_ITS ---
Exam(s) CT HEAD FACIAL WO EXAM: CT HEAD FACIAL WO CLINICAL HISTORY: neuralgia, ? TN,M79.2. TECHNIQUE: NO IV CONTRAST Imaging Protocol: Axial computed tomography images with coronal and sagittal reformatted images were created and reviewed COMPARISON: CT CT BRAIN NECK CTA from 04/17/2021 FINDINGS: BRAIN: There are no skull fractures nor fluid in the visualized paranasal sinuses. There is no evidence of intracranial hemorrhage, mass effect, or shift of midline structures. There are no extra-axial fluid collections. The ventricles are not enlarged or shifted and there is no blood within the ventricular system nor within the basal cisterns. There is a small nonhemorrhagic lacunar infarct in the lateral right basal ganglia as well as in the right caudate nucleus. There is moderate amount of bilateral periventricular hypodensity consistent with chronic small vessel disease. No obvious acute infarcts evident. MAXILLOFACIAL CT SCAN: There is no evidence of facial fractures nor fluid in the visualized paranasal sinuses. There is no evidence of orbital blowout fracture. Paranasal sinuses are clear. Ostiomeatal units are patent bilaterally. Orbits: Previous cataract surgery. Symmetrical calcifications in the medial aspect both orbits. No other findings in the globes and no retro conal compartment findings. No findings at the level the optic nerves and extraocular muscles. Mandible: Intact. Some degenerative changes noted at the TM joints. No significant osseous lesions. Nasopharynx: Unremarkable Oropharynx: Unremarkable Hypopharynx: Unremarkable Parotid and submandibular glands: Unremarkable. Lymph nodes: No obvious lymphadenopathy in the partially included neck. IMPRESSION: No acute intracranial findings on this noninfused CT scan of the brain.Chronic small-vessel disease and right-sided nonhemorrhagic lacunar infarcts as described above. No obvious territorial infarct. No evidence of facial bone fractures nor orbital fractures. RADIATION DOSE DELIVERED: 1,026.81mGy.cm Total DLP DATA REPOSITORY: All CT scans at this facility are submitted to the National Radiology Data Registry (NRDR) Dose Index Registry (DIR) with the [employer] ([employer]). RADIATION OPTIMIZATION: All CT scans at this facility use at least one of these dose optimization techniques: automated exposure control; mA and/or kV adjustment per patient size (includes targeted exams where dose is matched to clinical indication); or iterative reconstruction.
== END ==
LOC: DI 00:27
PROVIDERS: Visit Provider Nurse Practitioner Family
DX: M79.2 Neuralgia and neuritis, unspecified (principal)
CPT/HCPCS: 70450; 70486